=== PATIENT | female | born 1935 | race African-American/Black ===

== ENCOUNTER 2016-09-23 08:41 | Observation (INO) | payer MEDICARE, MEDICAID ==
[2016-09-23] VITALS (9 sets, daily range): BP systolic 131–190; BP diastolic 61–95; PULSE 76–113; RESP 15–20; TEMP 97–97.9; O2SAT 95–100
[~2016-09-23] VITALS: Ht 154.9 cm; Wt 62.0 kg
[~2016-09-23 08:41] MED LIST: 1-ME1LIQ PO; LEVEMIR SQ; LISI-586 PO; METO50TA PO; NITR.3 SL; NOVOLOGP2 SQ; PROT40TA PO
[2016-09-23] MEDS ORDERED: SODIUM CHLORIDE 0.9% FLUSH 5 ML FLUSH IVF PRN (09:15)
--- NOTE | 2016-09-23 09:44 | RADRPT ---
EXAM DATE/TIME: 09/23/2016 09:20 [facility] COMPARISON: CHEST SINGLE AP, February 10, 2016, 8:21. INDICATIONS : Pain middle of chest and short of breath today MEDICAL HISTORY : Hypertension. Gastroesophageal reflux disease. Diabetes mellitus type II. cardiovascular disease SURGICAL HISTORY : Coronary artery stent. ENCOUNTER: Initial ACUITY: 1 day PAIN SCORE: Non-responsive. LOCATION: Bilateral chest FINDINGS: A single view of the chest demonstrates the lungs to be symmetrically aerated without evidence of mas s, infiltrate or effusion. The cardiomediastinal contours are unremarkable. OLD Right rib fractures are noted.. CONCLUSION: No acute disease. Phill Broussard MD FACR on September 23, 2016 at 9:42 Board Certified Radiologist. This report was verified electronically.
--- NOTE | 2016-09-23 09:55 | PD ---
HPI Chief Complaint: Abdominal Pain Time Seen by Provider: 09:04 Travel History International Travel<30 days: No Contact w/Intl Traveler<30days: No Traveled to known affect area: No History of Present Illness HPI 80-year-old female with history of diabetes, hypertension, here for evaluation of chest and abdominal discomfort. The patient reports that the symptoms of been going on for the last 3-4 days, worse today. She complains of feeling bloated and full of gas. No dyspnea. No fevers or chills. She denies history of abdominal surgeries. PFSH Past Medical History Hx Anticoagulant Therapy: Yes (ASA) Arthritis: Yes Heart Rhythm Problems: Yes Cardiac Catheterization: Yes (STENTS X3) Cardiovascular Problems: Yes (HTN) High Cholesterol: Yes Congestive Heart Failure: No Diabetes: Yes (INSULIN DEPENDENT) Patient Takes Glucophage: No Diminished Hearing: No Gastrointestinal Disorders: Yes Heparin Induced Thrombocytopen: No Hypertension: Yes Myocardial Infarction: Yes ?: Not Menopausal: Yes : 7 Para: 7 Miscarriage: 0 : 0 Past Surgical History Coronary Artery Bypass Graft: No Gynecologic Surgery: Yes (HYSTERECTOMY) Hysterectomy: Yes Other Surgery: Yes Family History Family Myocardial Infarction: Yes (MOTHER) Social History Alcohol Use: No Tobacco Use: No Substance Use: No Allergies-Medications (Allergen,Severity, Reaction): Coded Allergies: No Known Allergies (Verified , 09/23/16) Reported Meds & Prescriptions Reported Meds & Active Scripts Active Review of Systems Except as stated in HPI: all other systems reviewed are Neg Physical Exam Narrative GENERAL: Well-developed, well-nourished, elderly-appearing female, awake, alert , pleasant, no acute distress. SKIN: Warm and dry. HEAD: Atraumatic. Normocephalic. EYES: Pupils equal and round. No scleral icterus. No injection or drainage. ENT: No nasal bleeding or discharge. Mucous membranes pink and moist. NECK: Trachea midline. No JVD. CARDIOVASCULAR: Regular rate and rhythm. No murmur appreciated. RESPIRATORY: No accessory muscle use. Clear to auscultation. Breath sounds equal bilaterally. GASTROINTESTINAL: Abdomen soft, non-tender, nondistended. Normal bowel sounds. MUSCULOSKELETAL: No obvious deformities. No clubbing. No cyanosis. No edema. NEUROLOGICAL: Awake and alert. No obvious cranial nerve deficits. Motor grossly within normal limits. Normal speech. PSYCHIATRIC: Appropriate mood and affect; insight and judgment normal. Data Data Last Documented VS Vital Signs Date Time Temp Pulse Resp B/P Pulse Ox O2 Delivery O2 Flow Rate FiO2 09/23/16 09:54 102 171/94 96 Room Air 09/23/16 08:59 20 09/23/16 08:43 97.9 Orders Electrocardiogram (09/23/16 ) Ckmb (Isoenzyme) Profile (09/23/16 09:09) Complete Blood Count With Diff (09/23/16 09:09) Comprehensive Metabolic Panel (09/23/16 09:09) Prothrombin Time / Inr (Pt) (09/23/16 09:09) Act Partial Throm Time (Ptt) (09/23/16 09:09) Troponin I (09/23/16 09:09) Chest, Single Ap (09/23/16 09:09) Ecg Monitoring (09/23/16 09:09) Iv Access Insert/Monitor (09/23/16 09:09) Oximetry (09/23/16 09:09) Sodium Chloride 0.9% Flush (Ns Flush) (09/23/16 09:15) Ct Abd/Pel W Iv Contrast(Rout) (09/23/16 09:09) Urinalysis - C+S If Indicated (09/23/16 09:55) Lipase (09/23/16 09:55) Cath For Specimen (09/23/16 10:03) CKMB (09/23/16 09:45) CKMB% (09/23/16 09:45) Iohexol 350 Inj (Omnipaque 350 Inj) (09/23/16 11:04) Urine Culture (09/23/16 10:49) Morphine Inj (Morphine Inj) (09/23/16 11:45) Labs Laboratory Tests Test 09/23/16 09/23/16 09:45 10:49 White Blood Count 4.0 TH/MM3 Red Blood Count 4.61 MIL/MM3 Hemoglobin 13.3 GM/DL Hematocrit 39.1 % Mean Corpuscular Volume 84.7 FL Mean Corpuscular Hemoglobin 28.8 PG Mean Corpuscular Hemoglobin 34.0 % Concent Red Cell Distribution Width 13.9 % Platelet Count 167 TH/MM3 Mean Platelet Volume 8.5 FL Neutrophils (%) (Auto) 56.2 % Lymphocytes (%) (Auto) 34.2 % Monocytes (%) (Auto) 7.5 % Eosinophils (%) (Auto) 1.1 % Basophils (%) (Auto) 1.0 % Neutrophils # (Auto) 2.3 TH/MM3 Lymphocytes # (Auto) 1.4 TH/MM3 Monocytes # (Auto) 0.3 TH/MM3 Eosinophils # (Auto) 0.0 TH/MM3 Basophils # (Auto) 0.0 TH/MM3 CBC Comment DIFF FINAL Differential Comment Prothrombin Time 10.7 SEC Prothromb Time International 1.0 RATIO Ratio Activated Partial 20.3 SEC Thromboplast Time Sodium Level 136 MEQ/L Potassium Level 4.5 MEQ/L Chloride Level 103 MEQ/L Carbon Dioxide Level 23.9 MEQ/L Anion Gap 9 MEQ/L Blood Urea Nitrogen 17 MG/DL Creatinine 1.08 MG/DL Estimat Glomerular Filtration 59 ML/MIN Rate Random Glucose 155 MG/DL Calcium Level 9.5 MG/DL Total Bilirubin 0.4 MG/DL Aspartate Amino Transf 18 U/L (AST/SGOT) Alanine Aminotransferase 18 U/L (ALT/SGPT) Alkaline Phosphatase 137 U/L Total Creatine Kinase 116 U/L Creatine Kinase MB 2.3 NG/ML Troponin I LESS THAN 0.02 NG/ML Total Protein 8.6 GM/DL Albumin 3.7 GM/DL Urine Color COLORLESS Urine Turbidity CLEAR Urine pH 6.5 Urine Specific [place] 1.002 Urine Protein NEG mg/dL Urine Glucose (UA) TRACE mg/dL Urine Ketones NEG mg/dL Urine Occult Blood NEG Urine Nitrite NEG Urine Bilirubin NEG Urine Urobilinogen LESS THAN 2.0 MG/DL Urine Leukocyte Esterase NEG Urine WBC 1 /hpf Urine Bacteria RARE /hpf Microscopic Urinalysis Comment CATH-CULTURE IND MDM Medical Decision Making Medical Screen Exam Complete: Yes Emergency Medical Condition: Yes Medical Record Reviewed: Yes Interpretation(s) EKG: Sinus, rate 92, first-degree AV block, nonspecific T-wave abnormality with T-wave inversions in lateral leads. No ST segment abnormality. Differential Diagnosis ACS, gastritis, peptic ulcer disease, pancreatitis, UTI, cystitis, mesenteric ischemia, colitis, diverticulitis, pancreatitis, cholecystitis Narrative Course Initial vital signs show heart rate 113, blood pressure 169/80, pulse ox 100% on room air, oral temp of 97.9F. Heart rate improved to 102. CBC is unremarkable. CMP is remarkable for creatinine 1.08, GFR 59, random glucose 155, otherwise unremarkable. Cardiac enzymes are negative. UA shows rare bacteria, negative nitrites, negative leukocyte esterase, not suggestive of UTI. CT abdomen pelvis: CONCLUSION: Stable CT scan of the abdomen and pelvis with no acute intra- abdominal abnormality or change. Cholelithiasis. Right renal cyst. Otherwise negative. The patient and the patient's family were made aware of all findings. She is still complaining of abdominal discomfort that is diffuse/epigastric. Her abdominal exam shows no peritoneal signs. Patient be admitted for further treatment and evaluation of chest pain, intractable abdominal pain. Case discussed with medical residents. The patient will be admitted to their service under Dr. Kelley. Diagnosis Primary Impression: Chest pain Qualified Code: R07.9 - Chest pain, unspecified type Additional Impression: Intractable abdominal pain Admitting Information Admitting Physician Requests: Leobardo Spann MD Sep 23, 2016 09:55
[2016-09-23 10:15] LABS: AUTOMATED NEUTROPHIL # 2.3 TH/MM3 (1.8-7.7); EOSINOPHIL % 1.1 % (0.0-4.0); HEMATOCRIT 39.1 % (35.0-46.0); HEMO FLAGS DIFF FINAL; LYMPH % 34.2 % (9.0-44.0); LYMPHOCYTE # 1.4 TH/MM3 (1.0-4.8); MEAN CELL VOLUME 84.7 FL (80.0-100.0); MEAN CORPUSCULAR HEMOGLOBIN 28.8 PG (27.0-34.0); MONO % 7.5 % (0.0-8.0); NEUT % 56.2 % (16.0-70.0); PLATELET COUNT 167 TH/MM3 (150-450); RED BLOOD COUNT 4.61 MIL/MM3 (4.00-5.30); RED CELL DISTRIBUTION WIDTH 13.9 % (11.6-17.2)
[2016-09-23 10:34] LABS: ALKALINE PHOSPHATASE 137 U/L (45-117); ALT (GPT) 18 U/L (10-53); ANION GAP 9 MEQ/L (5-15); AST (GOT) 18 U/L (15-37); BICARBONATE 23.9 MEQ/L (21.0-32.0); BLOOD UREA NITROGEN 17 MG/DL (7-18); CHLORIDE 103 MEQ/L (98-107); CREATINE KINASE 116 U/L (26-192); GLOMERULAR FILTRATION RATE 59 ML/MIN (>89); PROTHROMBIN TIME - PATIENT 10.7 SEC (9.8-11.6); SODIUM (NA) 136 MEQ/L (136-145); TOTAL BILIRUBIN ADULT 0.4 MG/DL (0.2-1.0)
[2016-09-23 10:37] LABS: APTT (PATIENT) 20.3 SEC (24.3-30.1); POTASSIUM 4.5 MEQ/L (3.5-5.1)
[2016-09-23 10:49] LABS: CKMB 2.3 NG/ML (0.5-3.6)
[2016-09-23] MEDS ORDERED: IOHEXOL 350 MG/ML 10 ML VIAL (for RAD DIAG) IV ONE (11:04)
[2016-09-23 11:12] LABS: BACTERIA, URINE RARE /hpf; BLOOD, URINE NEG (NEG); GLUCOSE,URINE TRACE mg/dL (NEG); KETONE, URINE NEG (NEG); NITRITE,URINE NEG (NEG); PH, URINE 6.5 (5.0-8.5); URINE COLOR COLORLESS (YELLW/STRAW)
[2016-09-23 11:18] LABS: COMMENT (UR) CATH-CULTURE IND; CULTURE IF INDICATED CATH CULTURE IND
--- NOTE | 2016-09-23 11:30 | RADRPT ---
EXAM DATE/TIME: 09/23/2016 11:05 [facility] COMPARISON: CT ABDOMEN & PELVIS W CONTRAST, October 18, 2015, 23:40. INDICATIONS : Abdominal pain and distention. IV CONTRAST: 70 cc Omnipaque 350 (iohexol) IV ORAL CONTRAST: No oral contrast ingested. RADIATION DOSE: 6.50 CTDIvol (mGy) MEDICAL HISTORY : Diabetes mellitus type 2. Cardiovascular disease Hypertension. SURGICAL HISTORY : Hysterectomy. ENCOUNTER: Initial ACUITY: 3 days PAIN SCALE: 5/10 LOCATION: Abdomen. TECHNIQUE: Volumetric scanning of the abdomen and pelvis was performed. Using automated exposure control and adjustment of the mA and/or kV according to patient size, radiation dose was kept as low as reasonably achievable to obtain optimal diagnostic quality images. FINDINGS: LOWER LUNGS: The visualized lower lungs are clear. LIVER: Homogeneous density without lesion. There is no dilation of the biliary tree. Gallbladder seen is a luminal structure with again multiple punctate stones within the gallbladder. SPLEEN: Normal size without lesion. PANCREAS: Within normal limits. KIDNEYS: Normal in size and shape. There is no stone or hydronephrosis. 2.8 cm right kidney lowe r pole cyst unchanged ADRENAL GLANDS: Within normal limits. VASCULAR: There is no aortic aneurysm. BOWEL/MESENTERY: The stomach, small bowel, and colon demonstrate no acute abnormality. There is no free intraperitoneal air or fluid. ABDOMINAL WALL: Within normal limits. RETROPERITONEUM: There is no lymphadenopathy. BLADDER: No wall thickening or mass. REPRODUCTIVE: Within normal limits. INGUINAL: There is no lymphadenopathy or hernia. MUSCULOSKELETAL: Within normal limits for patient age. CONCLUSION: Stable CT scan of the abdomen and pelvis with no acute intra-abdominal abnormality or change. Cholelithiasis. Right renal cyst. Otherwise negative. Pio Villareal MD on September 23, 2016 at 11:24 Board Certified Radiologist. This report was verified electronically.
[2016-09-23] MEDS ORDERED: MORPHINE SULFATE 4 MG/ML INJ IV PUSH ONE (11:45)
[2016-09-23] MEDS ORDERED: ACETAMINOPHEN 325 MG TAB PO PRN (12:00)
[2016-09-23] MEDS ORDERED: NALOXONE HCL 0.4 MG/ML AMP IV PRN (12:00)
[2016-09-23] MEDS ORDERED: SODIUM CHLORIDE 0.9% FLUSH 5 ML FLUSH FLUSH PRN (12:00)
[2016-09-23] MEDS ORDERED: ONDANSETRON HCL 4 MG/2 ML VIAL IVP PRN (12:00)
--- NOTE | 2016-09-23 12:14 | HHI.HP ---
HPI Service Family Medicine Primary Care Physician Unknown Admission Diagnosis chest pain, intractable abdominal pain Diagnoses: International Travel<30 Days: No Contact w/Intl Traveler<30days: No Known Affected Area: No History of Present Illness Patient and caregiver are poor historians This a 80-year-old -[place] female with a past medical history significant for type 2 diabetes on insulin, hyperlipidemia, hypertension, coronary artery disease status post stents, and VT. She is coming in complaining of worsening abdominal discomfort in the epigastric region as well as spreading to the left and right upper quadrants. She reports that this been going on for the last 3-4 days, but this morning was at its worst. She feels that she is bloated and gassy, though she reports having some bowel movements. She denies any nausea or vomiting with this abdominal pain. She denies any black or bloody stool. She does report that her blood sugars have been poorly controlled for the last few weeks, saying that they've been ranging between 200- 400. She states that she's been taking her insulin as prescribed. (Frandy Gallegos MD R2) Review of Systems ROS Limitations: Uncooperative, Poor Historian Other Endorses: Abdominal pain, bowel movement Denies: Fever, chills, nausea, vomiting, shortness of breath, chest pain, headache, calf pain, constipation (Frandy Gallegos MD R2) Past Family Social History Past Medical History Hypertension Diabetes mellitus Coronary artery disease Hyperlipidemia VT Past Surgical History Cardiac stents Hysterectomy Reported Medications Reported Meds & Active Scripts Active (Frandy Gallegos MD R2) Allergies: Coded Allergies: No Known Allergies (Verified , 09/23/16) Family History Noncontributory Social History Patient was alone care helped by her adult son She denies smoking She denies drinking Denies illicit drugs (Frandy Gallegos MD R2) Physical Exam Vital Signs Vital Signs Date Time Temp Pulse Resp B/P Pulse Ox O2 Delivery O2 Flow Rate FiO2 09/23/16 12:08 94 20 164/84 95 Room Air 09/23/16 12:08 96 18 190/95 98 Room Air 09/23/16 09:54 102 171/94 96 Room Air 09/23/16 08:59 20 09/23/16 08:57 108 20 165/77 98 09/23/16 08:43 97.9 113 15 169/80 100 Physical Exam GENERAL: Well-developed, well-nourished, elderly-appearing female, awake, alert , no acute distress. SKIN: Warm and dry. HEAD: Atraumatic. Normocephalic. EYES: Pupils equal and round. No scleral icterus. No injection or drainage. ENT: No nasal bleeding or discharge. Mucous membranes pink and moist. NECK: Trachea midline. No JVD. CARDIOVASCULAR: Regular rate and rhythm. No murmur appreciated. RESPIRATORY: No accessory muscle use. Clear to auscultation. Breath sounds equal bilaterally. GASTROINTESTINAL: Abdomen soft, no hepatosplenomegaly, tenderness or palpation in the epigastric and back across the right and left upper quadrants, nondistended. Normal bowel sounds. MUSCULOSKELETAL: No obvious deformities. No clubbing. No cyanosis. No edema. NEUROLOGICAL: Awake and alert. No obvious cranial nerve deficits. Motor grossly within normal limits. Normal speech. PSYCHIATRIC: Appropriate mood and affect; insight and judgment normal. Laboratory Laboratory Tests Test 09/23/16 09/23/16 09:45 10:49 White Blood Count 4.0 Red Blood Count 4.61 Hemoglobin 13.3 Hematocrit 39.1 Mean Corpuscular Volume 84.7 Mean Corpuscular Hemoglobin 28.8 Mean Corpuscular Hemoglobin 34.0 Concent Red Cell Distribution Width 13.9 Platelet Count 167 Mean Platelet Volume 8.5 Neutrophils (%) (Auto) 56.2 Lymphocytes (%) (Auto) 34.2 Monocytes (%) (Auto) 7.5 Eosinophils (%) (Auto) 1.1 Basophils (%) (Auto) 1.0 Neutrophils # (Auto) 2.3 Lymphocytes # (Auto) 1.4 Monocytes # (Auto) 0.3 Eosinophils # (Auto) 0.0 Basophils # (Auto) 0.0 CBC Comment DIFF FINAL Differential Comment Prothrombin Time 10.7 Prothromb Time International 1.0 Ratio Activated Partial 20.3 Thromboplast Time Sodium Level 136 Potassium Level 4.5 Chloride Level 103 Carbon Dioxide Level 23.9 Anion Gap 9 Blood Urea Nitrogen 17 Creatinine 1.08 Estimat Glomerular Filtration 59 Rate Random Glucose 155 Calcium Level 9.5 Total Bilirubin 0.4 Aspartate Amino Transf 18 (AST/SGOT) Alanine Aminotransferase 18 (ALT/SGPT) Alkaline Phosphatase 137 Total Creatine Kinase 116 Creatine Kinase MB 2.3 Troponin I LESS THAN 0.02 Total Protein 8.6 Albumin 3.7 Urine Color COLORLESS Urine Turbidity CLEAR Urine pH 6.5 Urine Specific [place] 1.002 Urine Protein NEG Urine Glucose (UA) TRACE Urine Ketones NEG Urine Occult Blood NEG Urine Nitrite NEG Urine Bilirubin NEG Urine Urobilinogen LESS THAN 2.0 Urine Leukocyte Esterase NEG Urine WBC 1 Urine Bacteria RARE Microscopic Urinalysis Comment CATH-CULTURE IND Date/Time Procedure Status Source Growth 09/23/16 10:49 Urine Culture Received Urine Catheterized Urine Pending (Farndy Gallegos MD R2) Result Diagram: 09/23/1645 09/23/16944 Imaging Last Impressions Chest X-Ray 09/23/16908 Signed Impressions: Service Date/Time: Friday, September 23, 2016 09:20 - CONCLUSION: No acute disease. Phill Broussard MD FACR Abdomen/Pelvis CT 09/23/16908 Signed Impressions: Service Date/Time: Friday, September 23, 2016 11:05 - CONCLUSION: Stable CT scan of the abdomen and pelvis with no acute intra-abdominal abnormality or change. Cholelithiasis. Right renal cyst. Otherwise negative. Pio Villareal MD (Frandy Gallegos MD R2) Assessment and Plan Assessment and Plan This a 80-year-old -[place] female with a past medical history significant for type 2 diabetes on insulin, hyperlipidemia, hypertension, coronary artery disease status post stents, and VT. She is being admitted observation for epigastric abdominal pain unknown cause. Code Status Full code Discussed Condition With [facility]: Dr. Kelley (Frandy Gallegos MD R2) Attending Attestation THIS CASE WAS DISCUSSED WITH THE RESIDENT PHYSICIAN. I HAVE REVIEWED THE RECORD AND AGREE WITH THE ABOVE NOTE AND PLAN OF CARE WAS DISCUSSED. I HAVE AUTHORIZED THE ORDER FOR PLACEMENT IN OUT-PATIENT OBSERVATION STATUS. (Gage Kelley MD) Problem List: (1) Intractable abdominal pain Status: Acute Plan: Patient being admitted for intractable abdominal pain. History of coronary disease and VT was a concern for possible cardiac cause. History of diabetes that has been reportedly poorly controlled with blood sugars ranging from 200-400. Differential consist of gastroparesis versus gastritis versus stomach ulcer versus VT versus constipation * Admit to observation * Trending troponins/CKMB * Protonix 20 mg by mouth daily * Tylenol 650 mg by mouth every 4 hours when necessary temperature and pain 16 * [place] 5/325 mg by mouth every 4 hours when necessary pain 6-10 * Zofran 4 mg IV to 6 hours when necessary nausea or vomiting * Mechelle-Colace * Milk of magnesia * Hemoccult ordered: Results pending * UA ordered: Negative nitrites, rare bacteria, urine cultures pending (2) Hypertension Status: Acute Plan: Reported history of hypertension, currently not on medications. Chart review showed past medical regimen * Clonidine 0.1 mg by mouth every 6 hours * Holding lisinopril due to elevated creatinine * Continue home med of metoprolol tartrate 50 mg by mouth twice a day * Continue home med of HCTZ 12.5 mg by mouth daily (3) Hyperlipidemia Status: Acute Plan: Reported history of hyperlipidemia. Currently not on medication will hold medications at this time (4) Diabetes mellitus Status: Acute Plan: Reports using 10-12 units NovoLog in the morning, and 25 units of Levemir at night. Says of late her blood sugar has been poorly controlled ranging between 200-400. At time admission blood sugar was 155. * Place on insulin NovoLog sliding scale (5) Coronary artery disease Status: Acute Plan: History of coronary artery disease with stent placement. Performing ACS rule out at this time. Trending troponins and EKGs. * Nitrostat when necessary chest pain per protocol (6) Nutrition, metabolism, and development symptoms Status: Acute Plan: Diabetic diet Out of bed ad moise. Monitor electrolytes and replace accordingly Vitals every 4 SCDs for DVT prophylaxis CODE STATUS: Full code Disposition: To be determined upon improvement of abdominal pain (Frandy Gallegos MD R2) Problem Qualifiers (1) Hypertension: Qualified Code: I10 - Essential hypertension (2) Diabetes mellitus: Qualified Code: E11.8 - Type 2 diabetes mellitus with complication, with long- term current use of insulin (3) Coronary artery disease: Qualified Code: I25.10 - Coronary artery disease involving [place] heart, angina presence unspecified, unspecified vessel or lesion type Frandy Gallegos MD R2 Sep 23, 2016 12:14 Gage Kelley MD Sep 23, 2016 19:42
[2016-09-23] MEDS ORDERED: cloNIDine HCL 0.1 MG TAB PO PRN (12:15)
--- NOTE | 2016-09-23 13:51 | EKG ---
Date Performed: 09/23/2016 Time Performed: 09:09:24 PTAGE: 80 years EKG: Sinus rhythm WITH FIRST DEGREE AV BLOCK NONSPECIFIC T-WAVE ABNORMALITY ABNORMAL ECG PREVIOUS TRACING : 02/10/2016 08.05 No significant change from previous tracing noted. DOCTOR: Shawn Damon Interpretating Date/Time 09/23/2016 13:49:34
[2016-09-23] MEDS ORDERED: DEXTROSE 50% IN WATER 50 ML VIAL(D50) IV PUSH PRN (14:15)
[2016-09-23] MEDS ORDERED: GLUCAGON 1 MG/ML VIAL OTHER PRN (14:15)
[2016-09-23] MEDS ORDERED: PANTOPRAZOLE SOD 20 MG DELAYED RELEASE TAB PO SCH (16:15)
[2016-09-23] MEDS ORDERED: ONDANSETRON HCL 4 MG/2 ML VIAL IV PUSH PRN (17:15)
[2016-09-23] MEDS ORDERED: ACETAMINOPHEN/HYDROcodone 325 MG/5 MG TAB PO PRN (17:15)
[2016-09-23] MEDS ORDERED: NITROGLYCERIN 0.4 MG SL 25 TABS/BTL SL PRN (17:15)
[2016-09-23] MEDS: INSULIN ASPART SUPPLEMENTAL SCALE SQ SCH ×2 (17:37→20:31)
[2016-09-23] MEDS ORDERED: METO50TA PO (18:11)
[2016-09-23] MEDS ORDERED: AMLO5TAB2 PO (18:13)
[2016-09-23] MEDS ORDERED: LISI-586 PO (18:13)
[2016-09-23] MEDS ORDERED: MAGNESIUM HYDROXIDE SUSP 30 ML CUP PO ONE (18:15)
[2016-09-23] MEDS ORDERED: NITR.3 SL (18:15)
[2016-09-23] MEDS ORDERED: NOVOLOGP2 SQ (18:17)
[2016-09-23] MEDS ORDERED: LEVEMIR SQ (18:19)
[2016-09-23] MEDS ORDERED: PROT40TA PO (18:19)
[2016-09-23] MEDS: DOCUSATE SODIUM 50 MG/SENNA 8.6 MG TAB PO SCH (20:31)
[2016-09-23] MEDS: METOPROLOL TARTRATE 50 MG TAB PO SCH (20:31)
[2016-09-23] MEDS: SODIUM CHLORIDE 0.9% FLUSH 5 ML FLUSH FLUSH SCH (20:31)
[2016-09-23 23:44] LABS: CREATINE KINASE 69 U/L (26-192)
[2016-09-24] VITALS: BP_SYST 128; BP_SYST 130; BP_SYST 133; BP_DIAS 62; BP_DIAS 68; BP_DIAS 69; PULSE 67; PULSE 68; RESP 18; TEMP 97; TEMP 97.8; O2SAT 97
[2016-09-24 04:00] VITALS: BP 141/75; PULSE 89; RESP 18; TEMP 97.9; O2SAT 98
[2016-09-24] MEDS: INSULIN ASPART SUPPLEMENTAL SCALE SQ SCH (06:19)
[2016-09-24 07:15] LABS: AUTOMATED NEUTROPHIL # 3.2 TH/MM3 (1.8-7.7); BASOPHIL % 0.8 % (0.0-2.0); EOSINOPHIL # 0.1 TH/MM3 (0-0.4); EOSINOPHIL % 1.2 % (0.0-4.0); HEMATOCRIT 37.3 % (35.0-46.0); HEMO FLAGS DIFF FINAL; LYMPH % 31.2 % (9.0-44.0); LYMPHOCYTE # 1.7 TH/MM3 (1.0-4.8); MEAN CELL VOLUME 86.1 FL (80.0-100.0); MEAN CORPUSCULAR HEMOGLOBIN 28.7 PG (27.0-34.0); MEAN CORPUSCULAR HGB CONC 33.3 % (32.0-36.0); MONO % 7.3 % (0.0-8.0); NEUT % 59.5 % (16.0-70.0); PLATELET COUNT 179 TH/MM3 (150-450); RED BLOOD COUNT 4.34 MIL/MM3 (4.00-5.30); RED CELL DISTRIBUTION WIDTH 13.7 % (11.6-17.2); WHITE BLOOD COUNT 5.4 TH/MM3 (4.0-11.0)
[2016-09-24 07:42] LABS: POTASSIUM 4.5 MEQ/L (3.5-5.1)
[2016-09-24 07:46] VITALS: BP 117/59; PULSE 68; RESP 20; TEMP 97.8; O2SAT 92
[2016-09-24] MEDS: DOCUSATE SODIUM 50 MG/SENNA 8.6 MG TAB PO SCH (08:59)
[2016-09-24] MEDS: METOPROLOL TARTRATE 50 MG TAB PO SCH (08:59)
[2016-09-24] MEDS ORDERED: PANTOPRAZOLE SOD 40 MG DELAYED RELEASE TAB PO SCH (09:00)
[2016-09-24] MEDS ORDERED: HYDROCHLOROTHIAZIDE 12.5 MG CAP PO SCH (09:00)
[2016-09-24] MEDS: SODIUM CHLORIDE 0.9% FLUSH 5 ML FLUSH FLUSH SCH (09:00)
--- NOTE | 2016-09-24 10:02 | HHI.FPPN ---
Subjective Remarks FM Attending Note: Patient seen and examined. S: Chart and all resident physician notes reviewed. In summary this is a 80 year old female who was admitted with an admission diagnosis of Chest Pain, Intractable Abdominal Pain. Her evaluation has been unremarkable with no elevation of her white blood cell count and negative imaging studies. She was observed overnight and notes that her pain has resolved. This morning she had a normal breakfast without difficulty. She notes no significant abdominal or chest pain. She denies any indigestion. She has no past history of peptic ulcer disease or GI bleeding. Objective Vitals Vital Signs Date Time Temp Pulse Resp B/P Pulse Ox O2 Delivery O2 Flow Rate FiO2 09/24/16 07:46 97.8 68 20 117/59 92 09/24/16 04:00 97.9 89 18 141/75 98 09/24/16 00:00 97.8 67 18 130/62 97 09/23/16 20:29 97.0 84 18 133/69 97 09/23/16 20:00 98 09/23/16 15:21 97.9 76 18 131/61 95 09/23/16 14:34 76 18 133/73 97 09/23/16 12:45 18 09/23/16 12:20 98 18 164/84 98 Room Air 09/23/16 12:08 94 20 164/84 95 Room Air 09/23/16 12:08 96 18 190/95 98 Room Air I/O 09/23/16 09/23/16 09/23/16 09/24/16 09/24/16 09/24/16 07:00 15:00 23:00 07:00 15:00 23:00 Intake Total 200 ml Balance 200 ml Intake Oral 200 ml Result Diagram: 09/24/16 0605 09/24/16 0605 Other Results Item Value Date Time Troponin I LESS THAN 0.02 NG/ML L 09/23/16 0945 Troponin I 0.03 NG/ML 09/23/16 1545 Troponin I 0.02 NG/ML 09/23/16 2251 Total Creatine Kinase 116 U/L 09/23/16 0945 Creatine Kinase MB 2.3 NG/ML 09/23/16 0945 Lipase 149 U/L 09/23/16 0945 Aspartate Amino Transf (AST/SGOT) 18 U/L 09/23/16 0945 Alanine Aminotransferase (ALT/SGPT) 18 U/L 09/23/16 0945 Alkaline Phosphatase 137 U/L H 09/23/16 0945 Urine Specific [place] 1.002 09/23/16 1049 Urine Glucose (UA) TRACE mg/dL 09/23/16 1049 Urine Nitrite NEG 09/23/16 1049 Urine Leukocyte Esterase NEG 09/23/16 1049 Urine WBC 1 /hpf 09/23/16 1049 Imaging Last 48 hours Impressions Chest X-Ray 09/23/16 0909 Signed Impressions: Service Date/Time: Friday, September 23, 2016 09:20 - CONCLUSION: No acute disease. Phill Broussard MD FACR Abdomen/Pelvis CT 09/23/16 09 Signed Impressions: Service Date/Time: Friday, September 23, 2016 11:05 - CONCLUSION: Stable CT scan of the abdomen and pelvis with no acute intra-abdominal abnormality or change. Cholelithiasis. Right renal cyst. Otherwise negative. Pio Villareal MD Objective Remarks O. CONSTITUTIONAL/GEN: normally nourished, in NAD. EYES: conjunctiva normal, PERRLA, EOMI. LUNGS: clear A-P, respiratory effort is normal. CARDIOVASCULAR: RR without murmur or gallop. No significant edema. GI/ABD: soft without masses, without organomegaly. : no CVA tenderness NEURO: No focal deficits. MUSC: back is normal in appearance. Extremities are normal in appearance. PSYCH/MENTAL STATUS: Alert and oriented x 3. A/P Assessment and Plan This a 80-year-old -[place] female with a past medical history significant for type 2 diabetes on insulin, hyperlipidemia, hypertension, coronary artery disease status post stents, and TN. She is being admitted observation for epigastric abdominal pain unknown cause. Problem List: (1) Intractable abdominal pain Status: Acute Plan: Patient being admitted for intractable abdominal pain. History of coronary disease and TN was a concern for possible cardiac cause. History of diabetes that has been reportedly poorly controlled with blood sugars ranging from 200-400. Differential consist of gastroparesis versus gastritis versus stomach ulcer versus TN versus constipation * Admit to observation * Trending troponins/CKMB * Protonix 20 mg by mouth daily * Tylenol 650 mg by mouth every 4 hours when necessary temperature and pain 16 * [place] 5/325 mg by mouth every 4 hours when necessary pain 6-10 * Zofran 4 mg IV to 6 hours when necessary nausea or vomiting * Mechelle-Colace * Milk of magnesia * Hemoccult ordered: Results pending * UA ordered: Negative nitrites, rare bacteria, urine cultures pending 09/24/16 This morning the patient's abdominal pain has totally resolved. She has noted some recent constipation. Would speculate that her abdominal pain was secondary to gastroenteritis and possible constipation. She has no history of peptic ulcer disease and long-term treatment with a PPI is probably not indicated but will have her continue Protonix daily for 1 week. We discussed using a stool softer with mild laxative to ensure a relatively normal bowel movement with ideal chronic management being increased fiber and fluids with normal activity. She is to follow-up with her primary care physician in the next 1-2 weeks. (2) Hypertension Status: Acute Plan: Reported history of hypertension, currently not on medications. Chart review showed past medical regimen * Clonidine 0.1 mg by mouth every 6 hours * Holding lisinopril due to elevated creatinine * Continue home med of metoprolol tartrate 50 mg by mouth twice a day * Continue home med of HCTZ 12.5 mg by mouth daily (3) Hyperlipidemia Status: Acute Plan: Reported history of hyperlipidemia. Currently not on medication will hold medications at this time (4) Diabetes mellitus Status: Acute Plan: Reports using 10-12 units NovoLog in the morning, and 25 units of Levemir at night. Says of late her blood sugar has been poorly controlled ranging between 200-400. At time admission blood sugar was 155. * Place on insulin NovoLog sliding scale (5) Coronary artery disease Status: Acute Plan: History of coronary artery disease with stent placement. Performing ACS rule out at this time. Trending troponins and EKGs. * Nitrostat when necessary chest pain per protocol * 09/24/16 * No chest pain overnight. Cardiac workup was negative for significant cardiac abnormality. (6) Nutrition, metabolism, and development symptoms Status: Acute Plan: Diabetic diet Out of bed ad moise. Monitor electrolytes and replace accordingly Vitals every 4 SCDs for DVT prophylaxis CODE STATUS: Full code Disposition: To be determined upon improvement of abdominal pain Problem Qualifiers (1) Hypertension: Qualified Code: I10 - Essential hypertension (2) Diabetes mellitus: Qualified Code: E11.8 - Type 2 diabetes mellitus with complication, with long- term current use of insulin (3) Coronary artery disease: Qualified Code: I25.10 - Coronary artery disease involving [place] heart, angina presence unspecified, unspecified vessel or lesion type Gage Kelley MD Sep 24, 2016 10:02
--- NOTE | 2016-09-24 10:03 | HHI.DCPOC ---
Discharge Care Plan Diagnosis: (1) Diabetes mellitus (2) Intractable abdominal pain Goals to Promote Your Health * To prevent worsening of your condition and complications * To maintain your health at the optimal level Directions to Meet Your Goals Take your medications as prescribed Follow your dietary instruction Follow activity as directed Keep your appointments as scheduled Take your immunizations and boosters as scheduled If your symptoms worsen call your PCP, if no PCP go to Urgent Care Center or Emergency Room Smoking is Dangerous to Your Health. Avoid second hand smoke Call the 24-hour hour crisis hotline for domestic abuse at Lazaro Marsh MD R3 Sep 24, 2016 10:03
[2016-09-24] MEDS ORDERED: SENN1TAB PO (10:10)
[2016-09-24 12:31] LABS: HEMOGLOBIN A1a 0.9 %; HEMOGLOBIN A1b 2.7 %; HEMOGLOBIN LA1C 2.5 %; HEMOGLOBIN P3 4.7 %
--- NOTE | 2016-09-24 13:46 | EKG ---
Date Performed: 09/23/2016 Time Performed: 22:32:21 PTAGE: 80 years EKG: SINUS BRADYCARDIA WITH FIRST DEGREE AV BLOCK MODERATE T-WAVE ABNORMALITY, CONSIDER LATERAL ISCHEMIA ABNORMAL ECG Compared to prior tracing no significant change PREVIOUS TRACING : 09/23/2016 16.20 DOCTOR: Yessica Aguilar Interpretating Date/Time 09/24/2016 13:44:37
--- NOTE | 2016-09-24 13:46 | EKG ---
Date Performed: 09/23/2016 Time Performed: 16:20:45 PTAGE: 80 years EKG: Sinus rhythm WITH FIRST DEGREE AV BLOCK NONSPECIFIC ST & T-WAVE ABNORMALITY ABNORMAL ECG Since PREVIOUS TRACING , no significant change noted PREVIOUS TRACING 09/23/201624 DOCTOR: Yessica Aguilar Interpretating Date/Time 09/24/2016 13:44:26
== END 2016-09-24 12:40 | disposition home or self-care (01) ==
LOC: NEPC 08:41 → NEDA 11:49 → NEPGCP 15:06
PROVIDERS: ADMIT Family Medicine; ATTEND Family Medicine
DX: R07.9 Chest pain, unspecified (principal); I25.10 Atherosclerotic heart disease of native coronary artery without angina pectoris; I10 Essential (primary) hypertension; E78.5 Hyperlipidemia, unspecified; I25.2 Old myocardial infarction; R79.89 Other specified abnormal findings of blood chemistry; E11.8 Type 2 diabetes mellitus with unspecified complications; E78.00 Pure hypercholesterolemia, unspecified; K52.9 Noninfective gastroenteritis and colitis, unspecified; N28.1 Cyst of kidney, acquired; K80.20 Calculus of gallbladder without cholecystitis without obstruction; Z95.5 Presence of coronary angioplasty implant and graft; Z79.4 Long term (current) use of insulin
CPT/HCPCS: 71010; 74177; 80048; 80053; 81001; 82550; 82552; 82948; 83036; 83690; 84484; 85025; 85610; 85730; 86403; 87086; 93005; 99285; G0378; J1815; J2270; Q9967

== ENCOUNTER 2016-10-29 21:14 | Emergency (ER) | payer MEDICARE, MEDICAID ==
[~2016-10-29] VITALS: Ht 154.9 cm; Wt 63.0 kg
[~2016-10-29 21:14] MED LIST changes: -1-ME1LIQ PO; +AMLO5TAB2 PO; +SENN1TAB PO
[2016-10-29 21:15] VITALS: BP 190/81; PULSE 85; RESP 16; TEMP 97.8; O2SAT 96
[2016-10-29 22:26] LABS: BLOOD, URINE NEG (NEG); GLUCOSE,URINE TRACE mg/dL (NEG); KETONE, URINE NEG (NEG); MUCUS URINE FEW /lpf (OCC); NITRITE,URINE NEG (NEG); SQUAMOUS EPITHELIAL CELL URINE <1 /hpf (0-5); URINE COLOR COLORLESS (YELLW/STRAW)
[2016-10-29 22:30] LABS: COMMENT (UR) CULT NOT INDICATED; CULTURE IF INDICATED CULT NOT INDICATED
[2016-10-29 22:53] VITALS: RESP 15; O2SAT 97
[2016-10-29] MEDS ORDERED: NOVOLOGP2 SQ (22:53)
[2016-10-29] MEDS ORDERED: SODIUM CHLORID 0.9% 500 ML INJ 500 ML IV ONE (23:00)
--- NOTE | 2016-10-29 23:13 | RADRPT ---
EXAM DATE/TIME: 10/29/2016 23:02 [facility] COMPARISON: CHEST SINGLE AP, September 23, 2016, 9:20. INDICATIONS : Cough for 5 days. MEDICAL HISTORY : Diabetes mellitus type 2. Cardiovascular disease Hypertension. SURGICAL HISTORY : Hysterectomy. Cardiac stents. ENCOUNTER: Initial ACUITY: 4 - 6 days PAIN SCORE: 2/10 LOCATION: Bilateral chest FINDINGS: A single view of the chest demonstrates some focal eventration of the midportion of the right hemidia phragm. Lungs are otherwise clear with no acute infiltrate or effusion. Old healed fracture deformiti es of the posterolateral right mid ribs. Osseous structures are otherwise intact. CONCLUSION: No acute cardiopulmonary process to explain current clinical symptoms. Paco Rojas MD on October 29, 2016 at 23:10 Board Certified Radiologist. This report was verified electronically.
[2016-10-29 23:18] LABS: AUTOMATED NEUTROPHIL # 1.6 TH/MM3 (1.8-7.7); BASOPHIL % 0.8 % (0.0-2.0); EOSINOPHIL # 0.2 TH/MM3 (0-0.4); EOSINOPHIL % 5.2 % (0.0-4.0); HEMATOCRIT 37.4 % (35.0-46.0); HEMO FLAGS DIFF FINAL; LYMPH % 49.2 % (9.0-44.0); LYMPHOCYTE # 2.2 TH/MM3 (1.0-4.8); MEAN CELL VOLUME 85.4 FL (80.0-100.0); MEAN CORPUSCULAR HEMOGLOBIN 28.9 PG (27.0-34.0); MEAN CORPUSCULAR HGB CONC 33.9 % (32.0-36.0); NEUT % 35.8 % (16.0-70.0); PLATELET COUNT 156 TH/MM3 (150-450); RED BLOOD COUNT 4.38 MIL/MM3 (4.00-5.30); RED CELL DISTRIBUTION WIDTH 13.5 % (11.6-17.2); WHITE BLOOD COUNT 4.5 TH/MM3 (4.0-11.0)
[2016-10-29 23:30] LABS: APTT (PATIENT) 26.6 SEC (24.3-30.1); PROTHROMBIN TIME - PATIENT 10.7 SEC (9.8-11.6)
[2016-10-29 23:41] LABS: ALT (GPT) 18 U/L (10-53); ANION GAP 10 MEQ/L (5-15); AST (GOT) 16 U/L (15-37); BICARBONATE 27.1 MEQ/L (21.0-32.0); BLOOD UREA NITROGEN 18 MG/DL (7-18); CHLORIDE 98 MEQ/L (98-107); GLOMERULAR FILTRATION RATE 73 ML/MIN (>89); MAGNESIUM 1.8 MG/DL (1.5-2.5); POTASSIUM 3.9 MEQ/L (3.5-5.1); SODIUM (NA) 135 MEQ/L (136-145)
[2016-10-29 23:43] LABS: ALKALINE PHOSPHATASE 115 U/L (45-117); TOTAL BILIRUBIN ADULT 0.4 MG/DL (0.2-1.0)
--- NOTE | 2016-10-30 00:09 | PD ---
HPI Chief Complaint: Cold / Flu Symptoms Time Seen by Provider: 22:45 Travel History International Travel<30 days: No Contact w/Intl Traveler<30days: No Traveled to known affect area: No History of Present Illness HPI The patient is a 80 year old female who presents to the [facility] emergency department with a history of cough, congestion that began 5 days ago. The patient reports that her cough is been productive of a thick white sputum. She reports that she's had a subjective fever and diarrhea. She reports the diarrhea has been present 3-4 times per day and is dark brown and loose. She denies having any blood or mucus in her stool. She reports having some nausea and decreased appetite, however no vomiting. The patient reports having associated body aches. She reports having upper abdominal pain related to the coughing. She reports having intermittent urinary incontinence related to her coughing. She denies any dysuria. She denies any urinary frequency or urgency. The patient denies any neck pain, chest pain, shortness of breath, or neurologic symptoms. [facility] Past Medical History Narrative Medical The patient's past medical history is significant for hypertension, diabetes mellitus, coronary artery disease, acid reflux. Hx Anticoagulant Therapy: Yes (ASA) Arthritis: Yes Heart Rhythm Problems: Yes Cardiac Catheterization: Yes (STENTS X3) Cardiovascular Problems: Yes (HTN) High Cholesterol: Yes Congestive Heart Failure: No Diabetes: Yes (INSULIN DEPENDENT) Patient Takes Glucophage: No Diminished Hearing: No Gastrointestinal Disorders: Yes Heparin Induced Thrombocytopen: No Hypertension: Yes Myocardial Infarction: Yes Influenza Vaccination: Yes ?: Not Menopausal: Yes : 7 Para: 7 Miscarriage: 0 : 0 Past Surgical History Narrative Surgical The patient's past surgical history is significant for a hysterectomy. Coronary Artery Bypass Graft: No Gynecologic Surgery: Yes (HYSTERECTOMY) Hysterectomy: Yes Other Surgery: Yes Family History Family Myocardial Infarction: Yes (MOTHER) Social History Alcohol Use: No Tobacco Use: No Substance Use: No Allergies-Medications (Allergen,Severity, Reaction): Coded Allergies: No Known Allergies (Verified , 09/23/16) Reported Meds & Prescriptions Reported Meds & Active Scripts Active Benzonatate 100 Mg Cap 100 Mg PO TID PRN Senna Plus 8.6-50 mg (Sennosides-Docusate Sodium) 1 Tab Tab 2 Tab PO BID PRN Reported Novolog Inj (Insulin Aspart) 1,000 Unit/10 Ml Vial 0 SQ ACHS SLIDING SCALE Sliding Scale as directed. Levemir Inj (Insulin Detemir) 1,000 unit/ 10 ML Vial 25 Units SQ HS Do not mix with any other Insulin. Protonix (Pantoprazole Sodium) 40 Mg Tab 40 Mg PO PRN PRN Amlodipine (Amlodipine Besylate) 5 Mg Tab 5 Mg PO BID Review of Systems General / Constitutional: Positive: Fever Eyes: No: Visual changes HENT: Positive: Rhinorrhea, Congestion, No: Headaches Cardiovascular: No: Chest Pain or Discomfort, Dyspnea on exertion Respiratory: Positive: Cough, No: Shortness of Breath Gastrointestinal: Positive: Nausea, Diarrhea, Abdominal Pain, Changes in Bowel Habits, Loss of Appetite, No: Vomiting, Hematemesis, Hematochezia Genitourinary: Positive: Incontinence, No: Urgency, Frequency, Dysuria, Flank Pain Musculoskeletal: Positive: Myalgias, Pain Skin: No Rash Neurologic: Positive: Weakness (generalized weakness), No: Focal Abnormalities , Change in Mentation, Slurred Speech, Sensory Disturbance Psychiatric: No: Depression Endocrine: No: Polydipsia Hematologic/Lymphatic: No: Easy Bruising Physical Exam Narrative General: The patient is a well-developed well-nourished female in no acute distress Head and Neck exam: Head is normocephalic atraumatic. Eyes: EOMI, pupils are equal round and reactive to light. Nose: Midline septum with erythematous edematous nasal mucosa and a clear nasal discharge. Mouth: Dentition unremarkable. Moist mucus membranes. Posterior oropharynx is not erythematous. No tonsillar hypertrophy. Uvula midline. Airway patent. Neck: No palpable lymphadenopathy. No nuchal rigidity. No thyromegaly. Cardiovascular: Regular rate and rhythm without murmurs, gallops, or rubs. No pulse deficit to the extremities. Lungs: Clear to auscultation bilaterally. No wheezes, rhonchi, or rales. She has a frequent dry sounding cough on examination. Abdomen: Soft, with tenderness on palpation in bilateral upper quadrants of the abdomen. No tenderness on palpation of bilateral lower quadrants or suprapubic area. No guarding, rebound, or rigidity. Negative [place] sign. No tenderness on palpation of McBurney's point. Normal bowel sounds are audible. Extremities: No clubbing, cyanosis, or edema. 2+ pulses in all 4 extremities. No calf tenderness on palpation. Back: No spinous process tenderness to palpation. No costovertebral angle tenderness to palpation. Neurologic Exam: Grossly nonfocal. Skin Exam: No rash noted. Intact skin that is warm and dry. Data Data Last Documented VS Vital Signs Date Time Temp Pulse Resp B/P Pulse Ox O2 Delivery O2 Flow Rate FiO2 10/29/16 23:07 Room Air 10/29/16 22:53 15 97 10/29/16 21:15 97.8 85 190/81 Orders Urinalysis - C+S If Indicated (10/29/16 22:03) Electrocardiogram (10/29/16 22:45) Complete Blood Count With Diff (10/29/16 22:45) Comprehensive Metabolic Panel (10/29/16 22:45) B-Type Natriuretic Peptide (10/29/16 22:45) Prothrombin Time / Inr (Pt) (10/29/16 22:45) Act Partial Throm Time (Ptt) (10/29/16 22:45) C-Reactive Protein (Crp) (10/29/16 22:45) Lipase (10/29/16 22:45) Magnesium (Mg) (10/29/16 22:45) Influenzae A/B Antigen (10/29/16 22:45) Chest, Single Ap (10/29/16 22:45) Iv Access Insert/Monitor (10/29/16 22:45) Ecg Monitoring (10/29/16 22:45) Oximetry (10/29/16 22:45) Stool Wbc (Leukocytes) (10/29/16 22:45) C Diff Toxin Pcr (10/29/16 22:45) Enteric Path (Stool) (10/29/16 22:45) Sodium Chlorid 0.9% 500 Ml Inj (Ns 500 M (10/29/16 23:00) Ct Abd/Pel W Iv Contrast(Rout) (10/30/16 00:09) Iohexol 350 Inj (Omnipaque 350 Inj) (10/30/16 01:17) Benzonatate (Tessalon) (10/30/16 01:45) Labs Laboratory Tests Test 10/29/16 10/29/16 21:55 22:45 Urine Color COLORLESS Urine Turbidity CLEAR Urine pH 6.0 Urine Specific [place] 1.003 Urine Protein NEG mg/dL Urine Glucose (UA) TRACE mg/dL Urine Ketones NEG mg/dL Urine Occult Blood NEG Urine Nitrite NEG Urine Bilirubin NEG Urine Urobilinogen LESS THAN 2.0 MG/DL Urine Leukocyte Esterase MOD Urine RBC LESS THAN 1 /hpf Urine WBC 2 /hpf Urine Squamous Epithelial <1 /hpf Cells Urine Mucus FEW /lpf Microscopic Urinalysis Comment CULT NOT INDICATED White Blood Count 4.5 TH/MM3 Red Blood Count 4.38 MIL/MM3 Hemoglobin 12.7 GM/DL Hematocrit 37.4 % Mean Corpuscular Volume 85.4 FL Mean Corpuscular Hemoglobin 28.9 PG Mean Corpuscular Hemoglobin 33.9 % Concent Red Cell Distribution Width 13.5 % Platelet Count 156 TH/MM3 Mean Platelet Volume 8.4 FL Neutrophils (%) (Auto) 35.8 % Lymphocytes (%) (Auto) 49.2 % Monocytes (%) (Auto) 9.0 % Eosinophils (%) (Auto) 5.2 % Basophils (%) (Auto) 0.8 % Neutrophils # (Auto) 1.6 TH/MM3 Lymphocytes # (Auto) 2.2 TH/MM3 Monocytes # (Auto) 0.4 TH/MM3 Eosinophils # (Auto) 0.2 TH/MM3 Basophils # (Auto) 0.0 TH/MM3 CBC Comment DIFF FINAL Differential Comment Prothrombin Time 10.7 SEC Prothromb Time International 1.0 RATIO Ratio Activated Partial 26.6 SEC Thromboplast Time Sodium Level 135 MEQ/L Potassium Level 3.9 MEQ/L Chloride Level 98 MEQ/L Carbon Dioxide Level 27.1 MEQ/L Anion Gap 10 MEQ/L Blood Urea Nitrogen 18 MG/DL Creatinine 0.90 MG/DL Estimat Glomerular Filtration 73 ML/MIN Rate Random Glucose 238 MG/DL Calcium Level 9.2 MG/DL Magnesium Level 1.8 MG/DL Total Bilirubin 0.4 MG/DL Aspartate Amino Transf 16 U/L (AST/SGOT) Alanine Aminotransferase 18 U/L (ALT/SGPT) Alkaline Phosphatase 115 U/L C-Reactive Protein 2.07 MG/DL B-Type Natriuretic Peptide 33 PG/ML Total Protein 7.8 GM/DL Albumin 3.3 GM/DL Lipase 112 U/L [facility] Medical Decision Making Medical Screen Exam Complete: Yes Emergency Medical Condition: Yes Medical Record Reviewed: Yes Interpretation(s) Last Impressions Abdomen/Pelvis CT 10/30/16 0009 Signed Impressions: Service Date/Time: Sunday, October 30, 2016 01:12 - CONCLUSION: 1. Grossly stable examination with cholelithiasis and a benign 2.8 cm right renal cyst. 2. No acute intraperitoneal or pelvic process to explain current clinical symptoms. Paco Rojas MD Chest X-Ray 10/29/16 2245 Signed Impressions: Service Date/Time: Saturday, October 29, 2016 23:02 - CONCLUSION: No acute cardiopulmonary process to explain current clinical symptoms. Paco Rojas MD Differential Diagnosis Influenza, versus pneumonia, versus urinary tract infection, versus sepsis, versus colitis, versus diverticulitis, versus dehydration, versus electrolyte abnormalities Narrative Course During the course of the patients emergency department visit, the patients history, examination, and differential diagnosis were reviewed with the patient. The patient had IV access obtained and blood work sent for analysis. The patient was placed on a ekg monitor tech with oximetry and blood pressure monitoring. An EKG was done on arrival. The patient's EKG shows a sinus rhythm at 76, no acute ST segment elevation is noted. T waves are inverted in lead 1, aVL. No acute ST segment depression is noted. Chest x-ray, CT scan of the abdomen and pelvis was ordered. The patient was provided normal saline a 500 mL bolus 1. The patients laboratory studies were reviewed and remarkable for a white count of 4.5, hemoglobin 12.7, platelets 156 with 49.2 lymphocytes, monocytes 9.0. CMP is remarkable for sodium of 135, glucose 238, C-reactive protein 2.07, BNP 33, lipase 112, urinalysis shows moderate leukocyte esterase rbc's less than 1 wbc's to culture not indicated. PT PTT are unremarkable. Influenza antigen a and B are negative. Radiology studies were reviewed and remarkable for a chest x-ray shows no acute cardiopulmonary disease. The patient is resting comfortably and feels better, is alert and in no distress. The patients results and examination findings were discussed with the patient. The repeat examination is unremarkable and benign. The history, exam, diagnostic testing, and current condition do not suggest any significant pathology to warrant further testing, continued ED treatment, admission, or surgical evaluation at this point. The vital signs have been stable. The patient does not have uncontrollable pain, intractable vomiting, or other significant symptoms. The patient's condition is stable and appropriate for discharge. The patient will pursue further outpatient evaluation with a primary care physician or other designated or consulting physician as indicated in the discharge instructions. The patient expressed understanding and was agreeable with this plan. Diagnosis Primary Impression: Viral syndrome Additional Impressions: Diarrhea Qualified Code: R19.7 - Diarrhea, unspecified type Cough Referrals: Primary Care Physician Patient Instructions: Acute Cough (ED), Acute Diarrhea (ED), General Instructions, Viral Syndrome (ED) Med/Other Pt SpecificInfo: Prescription(s) given Scripts Benzonatate 100 Mg [id number] Mg PO TID PRN (COUGH) #15 CAP Ref 0 Prov:Carina Shaffer MD 10/30/16 Disposition: 01 DISCHARGE HOME Condition: Stable Carina Shaffer MD Oct 30, 2016 00:09
[2016-10-30] MEDS ORDERED: BENZ1CAP8 PO (00:59)
[2016-10-30] MEDS ORDERED: IOHEXOL 350 MG/ML 10 ML VIAL (for RAD DIAG) IV ONE (01:17)
--- NOTE | 2016-10-30 01:34 | RADRPT ---
EXAM DATE/TIME: 10/30/2016 01:12 [facility] COMPARISON: CT ABDOMEN & PELVIS W CONTRAST, September 23, 2016, 11:05. INDICATIONS : Abdomen pain along with diarrhea. IV CONTRAST: 76 cc Omnipaque 350 (iohexol) IV ORAL CONTRAST: No oral contrast ingested. RADIATION DOSE: 7.25 CTDIvol (mGy) MEDICAL HISTORY : Cardiovascular disease. Hypertension. Diabetes mellitus type 2. SURGICAL HISTORY : Hysterectomy. ENCOUNTER: Initial ACUITY: 2 days PAIN SCALE: 2/10 LOCATION: abdomen TECHNIQUE: Volumetric scanning of the abdomen and pelvis was performed. Using automated exposure control and ad justment of the mA and/or kV according to patient size, radiation dose was kept as low as reasonably achievable to obtain optimal diagnostic quality images. FINDINGS: Study is somewhat limited due to multilevel motion artifact but I believe adequate for diagnosis LOWER LUNGS: The visualized lower lungs are clear. LIVER: Homogeneous density without lesion. There is no dilation of the biliary tree. Multiple calcified gal lstones in the gallbladder lumen. SPLEEN: Normal size without lesion. PANCREAS: Within normal limits. KIDNEYS: Normal in size and shape. There is no mass, stone or hydronephrosis. Benign-appearing 2.8 cm cortica l cyst in the medial lower pole of the right kidney ADRENAL GLANDS: Within normal limits. VASCULAR: There is no aortic aneurysm. BOWEL/MESENTERY: The stomach, small bowel, and colon demonstrate no acute abnormality. There is no free intraperitone al air or fluid. ABDOMINAL WALL: Within normal limits. RETROPERITONEUM: There is no lymphadenopathy. BLADDER: Some distention of the bladder lumen.. REPRODUCTIVE: Patient appears to be status post hysterectomy. INGUINAL: There is no lymphadenopathy or hernia. MUSCULOSKELETAL: Within normal limits for patient age. CONCLUSION: 1. Grossly stable examination with cholelithiasis and a benign 2.8 cm right renal cyst. 2. No acute intraperitoneal or pelvic process to explain current clinical symptoms. Paco Rojas MD on October 30, 2016 at 1:25 Board Certified Radiologist. This report was verified electronically.
[2016-10-30] MEDS ORDERED: BENZONATATE 100 MG CAP PO ONE (01:45)
--- NOTE | 2016-10-30 18:35 | EKG ---
Date Performed: 10/29/2016 Time Performed: 23:28:34 PTAGE: 80 years EKG: Sinus rhythm WITH FIRST DEGREE AV BLOCK MODERATE T-WAVE ABNORMALITY, CONSIDER LATERAL ISCHEMIA ABNORMAL ECG PREVIOUS TRACING : 09/23/2016 22.32 DOCTOR: Brando Pond Interpretating Date/Time 10/30/2016 18:33:12
[2016-10-30] MEDS ORDERED: LISI20TA PO (23:38)
[2016-10-31] MEDS ORDERED: ALBU6.7H INH (02:10)
[2016-10-31] MEDS ORDERED: BREAMIS5 (02:10)
== END 2016-10-30 02:25 | disposition home or self-care (01) ==
LOC: NEPC 21:14
DX: B34.9 Viral infection, unspecified (principal); R19.7 Diarrhea, unspecified; R05 Cough; R94.31 Abnormal electrocardiogram [ECG] [EKG]; R10.10 Upper abdominal pain, unspecified; I10 Essential (primary) hypertension; E11.9 Type 2 diabetes mellitus without complications; E78.00 Pure hypercholesterolemia, unspecified; Z79.01 Long term (current) use of anticoagulants; J40 Bronchitis, not specified as acute or chronic; N95.2 Postmenopausal atrophic vaginitis; R30.0 Dysuria; E78.5 Hyperlipidemia, unspecified; I25.10 Atherosclerotic heart disease of native coronary artery without angina pectoris; Z79.82 Long term (current) use of aspirin; Z79.4 Long term (current) use of insulin; Z86.79 Personal history of other diseases of the circulatory system; Z87.39 Personal history of other diseases of the musculoskeletal system and connective tissue; Z87.19 Personal history of other diseases of the digestive system
CPT/HCPCS: 71010; 74177; 80048; 80053; 81001; 82550; 83605; 83690; 83735; 83880; 84484; 85025; 85610; 85730; 86140; 87040; 87804; 93005; 96360; 99285; J7040; Q9967

== ENCOUNTER 2016-10-30 22:31 | Emergency (ER) | payer MEDICARE, MEDICAID ==
[~2016-10-30] VITALS: Ht 154.9 cm; Wt 59.1 kg
[~2016-10-30 22:31] MED LIST changes: +BENZ1CAP8 PO; -LISI-586 PO; -METO50TA PO; -NITR.3 SL
[2016-10-30 22:47] VITALS: BP 168/78; PULSE 91; RESP 18; TEMP 97.5; O2SAT 98
[2016-10-30 23:31] VITALS: BP 181/80; PULSE 87; RESP 22; O2SAT 97
[2016-10-30] MEDS ORDERED: LISI20TA PO (23:38)
[2016-10-30] MEDS ORDERED: SODIUM CHLORIDE 0.9% FLUSH 5 ML FLUSH IVF PRN (23:45)
--- NOTE | 2016-10-30 23:51 | PD ---
HPI Chief Complaint: Cold / Flu Symptoms Time Seen by Provider: 23:42 Travel History International Travel<30 days: No Contact w/Intl Traveler<30days: No Traveled to known affect area: No History of Present Illness HPI 80-year-old female presents to the emergency department for complaint of cough and feeling like her heart is racing. Patient was diagnosed yesterday with a viral syndrome. Patient denies chest pain but does complain of cough and congestion. No shortness of breath at this time. Patient also complains of abdominal discomfort. Patient is been metered recently for intractable abdominal pain at CT abdomen and pelvis last night that showed stable cholelithiasis without evidence of cholecystitis. Patient states that she also has had intermittent diarrhea. No report of hematemesis coffee-ground emesis melena or hematochezia. Patient has had some dysuria. Patient is diabetic as well as history of hypertension dyslipidemia and CAD. Patient was noted to have a negative flu antigen yesterday. Patient denies any new symptoms states just not improving. PFSH Past Medical History Narrative Medical CAD myocardial infarction arthritis cardiac catheterization with stents 3 dyslipidemia hypertension diabetes hysterectomy no tobacco use nursing notes reviewed Hx Anticoagulant Therapy: Yes (ASA) Arthritis: Yes Heart Rhythm Problems: Yes Cardiac Catheterization: Yes (STENTS X3) Cardiovascular Problems: Yes (HTN) High Cholesterol: Yes Congestive Heart Failure: No Diabetes: Yes Patient Takes Glucophage: No Diminished Hearing: No Gastrointestinal Disorders: Yes Heparin Induced Thrombocytopen: No Hypertension: Yes Immunizations Current: Yes Myocardial Infarction: Yes Influenza Vaccination: Yes Menopausal: Yes : 7 Para: 7 Miscarriage: 0 : 0 Past Surgical History Coronary Artery Bypass Graft: No Gynecologic Surgery: Yes (HYSTERECTOMY) Hysterectomy: Yes Other Surgery: Yes Family History Family Myocardial Infarction: Yes (MOTHER) Social History Alcohol Use: No Tobacco Use: No Substance Use: No Allergies-Medications (Allergen,Severity, Reaction): Coded Allergies: No Known Allergies (Verified , 10/30/16) Reported Meds & Prescriptions Reported Meds & Active Scripts Active Breatherite MDI Space/Aerosol-Holding Chamber (Spacer/Breatherite MDI Aerosol- Holding Chamb) 1 Mis Mis 1 Ea .ROUTE DIRECTED Proventil Hfa 6.7 GM Inh (Albuterol Sulfate) 90 Mcg/Act Aer 2 Puff INH Q4-6H PRN Benzonatate 100 Mg Cap 100 Mg PO TID PRN Senna Plus 8.6-50 mg (Sennosides-Docusate Sodium) 1 Tab Tab 2 Tab PO BID PRN Reported Lisinopril-Hctz 20-12.5 Mg Tab 1 Tab PO DAILY Novolog Inj (Insulin Aspart) 1,000 Unit/10 Ml Vial 0 SQ ACHS SLIDING SCALE Sliding Scale as directed. Levemir Inj (Insulin Detemir) 1,000 unit/ 10 ML Vial 25 Units SQ HS Do not mix with any other Insulin. Protonix (Pantoprazole Sodium) 40 Mg Tab 40 Mg PO PRN PRN Amlodipine (Amlodipine Besylate) 5 Mg Tab 5 Mg PO BID Review of Systems Except as stated in HPI: all other systems reviewed are Neg General / Constitutional: No: Fever, Chills HENT: No: Congestion Cardiovascular: Positive: Palpitations, Tachycardia, No: Chest Pain or Discomfort Respiratory: Positive: Cough, No: Wheezing Gastrointestinal: Positive: Diarrhea, Abdominal Pain, No: Nausea, Vomiting Genitourinary: Positive: Dysuria (chronic chronic) Musculoskeletal: No: Myalgias, Arthralgias Skin: No Rash Neurologic: No: Weakness Psychiatric: Positive: Anxiety Endocrine: No: Heat Intolerance Hematologic/Lymphatic: No: Easy Bruising Physical Exam Narrative GENERAL: Well-developed well-nourished elderly female in no acute distress no respiratory distress SKIN: Warm and dry. HEAD: Normocephalic. EYES: No scleral icterus. No injection or drainage. NECK: Supple, trachea midline. No JVD or lymphadenopathy. CARDIOVASCULAR: Regular rate and rhythm without murmurs, gallops, or rubs. RESPIRATORY: Breath sounds equal bilaterally intermittent rhonchi. No accessory muscle use. GASTROINTESTINAL: Abdomen soft, non-tender, nondistended. MUSCULOSKELETAL: No cyanosis, or edema. BACK: Nontender without obvious deformity. No CVA tenderness. Data Data Last Documented VS Vital Signs Date Time Temp Pulse Resp B/P Pulse Ox O2 Delivery O2 Flow Rate FiO2 10/31/16 01:33 82 20 136/87 97 Room Air 10/30/16 22:47 97.5 Orders Complete Blood Count With Diff (10/30/16 23:42) Basic Metabolic Panel (Bmp) (10/30/16 23:42) Magnesium (Mg) (10/30/16 23:42) Ckmb (Isoenzyme) Profile (10/30/16 23:42) Troponin I (10/30/16 23:42) Urinalysis - C+S If Indicated (10/30/16 23:42) Iv Access Insert/Monitor (10/30/16 23:42) Electrocardiogram (10/30/16 23:42) Ecg Monitoring (10/30/16 23:42) Oximetry (10/30/16 23:42) Oxygen Administration (10/30/16 23:42) Chest, Single Ap (10/30/16 23:42) Sodium Chloride 0.9% Flush (Ns Flush) (10/30/16 23:45) Blood Culture (10/30/16 23:42) Lactic Acid (10/30/16 23:42) Wet Prep Profile (10/31/16 01:52) Labs Laboratory Tests Test 10/30/16 10/30/16 10/31/16 23:56 23:59 01:50 Lactic Acid Level 1.3 mmol/L White Blood Count 4.3 TH/MM3 Red Blood Count 4.34 MIL/MM3 Hemoglobin 12.5 GM/DL Hematocrit 37.0 % Mean Corpuscular Volume 85.2 FL Mean Corpuscular Hemoglobin 28.8 PG Mean Corpuscular Hemoglobin 33.8 % Concent Red Cell Distribution Width 14.0 % Platelet Count 190 TH/MM3 Mean Platelet Volume 8.2 FL Neutrophils (%) (Auto) 44.7 % Lymphocytes (%) (Auto) 42.3 % Monocytes (%) (Auto) 9.8 % Eosinophils (%) (Auto) 2.6 % Basophils (%) (Auto) 0.6 % Neutrophils # (Auto) 1.9 TH/MM3 Lymphocytes # (Auto) 1.8 TH/MM3 Monocytes # (Auto) 0.4 TH/MM3 Eosinophils # (Auto) 0.1 TH/MM3 Basophils # (Auto) 0.0 TH/MM3 CBC Comment DIFF FINAL Differential Comment Urine Color COLORLESS Urine Turbidity CLEAR Urine pH 6.0 Urine Specific Paulina 1.002 Urine Protein NEG mg/dL Urine Glucose (UA) NEG mg/dL Urine Ketones NEG mg/dL Urine Occult Blood NEG Urine Nitrite NEG Urine Bilirubin NEG Urine Urobilinogen LESS THAN 2.0 MG/DL Urine Leukocyte Esterase NEG Urine WBC LESS THAN 1 /hpf Microscopic Urinalysis Comment CULT NOT INDICATED Sodium Level 134 MEQ/L Potassium Level 3.8 MEQ/L Chloride Level 96 MEQ/L Carbon Dioxide Level 29.4 MEQ/L Anion Gap 9 MEQ/L Blood Urea Nitrogen 18 MG/DL Creatinine 0.89 MG/DL Estimat Glomerular Filtration 74 ML/MIN Rate Random Glucose 127 MG/DL Calcium Level 9.3 MG/DL Magnesium Level 1.8 MG/DL Total Creatine Kinase 92 U/L Troponin I LESS THAN 0.02 NG/ML Clue Cells (Wet Prep) NONE SEEN Vaginal Trichomonas (Wet Prep) NONE SEEN Vaginal Yeast (Wet Prep) NONE SEEN MDM Medical Decision Making Medical Screen Exam Complete: Yes Emergency Medical Condition: Yes Medical Record Reviewed: Yes Interpretation(s) EKG normal sinus rhythm rate 78 mild T-wave inversion V1 aVL no acute ST elevation CK: 92, not elevated; Troponin I less than 0.02, not elevated Urinalysis: Within normal limits Last Impressions Chest X-Ray 10/30/16 9202 Signed Impressions: Service Date/Time: October 00:04 - CONCLUSION: Stable chest with no acute cardiopulmonary process to explain current clinical symptoms. Paco Rojas MD CBC & BMP Diagram 10/30/16 23:59 Vital Signs Date Time Temp Pulse Resp B/P Pulse Ox O2 Delivery O2 Flow Rate FiO2 10/31/16 01:33 82 20 136/87 97 Room Air 10/30/16 23:31 87 22 181/80 97 Room Air 10/30/16 22:47 97.5 91 18 168/78 98 Lactic acid: 1.3, not elevated wet prep: negative Differential Diagnosis Cough, bronchitis, pneumonia, CHF, ACS Narrative Course Patient presents with cough productive of thick white sputum no hemoptysis no pink tinged sputum afebrile without rales to auscultation patient was just seen yesterday for same complaint has not been using Tessalon Perles; EKG shows no acute ST elevation or injury pattern change cardiac enzymes are within normal range total white cell count within normal limits yesterday with lymphocytosis influenza test yesterday negative. Patient is scheduled to see her doctor this week. Lab values found to be grossly within normal limits; patient stable for outpatient management; provided with prescription for albuterol inhaler to use as needed for cough as well as has prescription for Tessalon Perles; patient is encouraged to monitor blood sugar closely and continue take medications as prescribed. Patient resting comfortably vital signs have normalized the patient is stable for outpatient management; patient is aware wet prep is negative for yeast infection; again patient is encouraged to follow-up with her primary care provider and to return to the emergency department as needed Diagnosis Primary Impression: Cough Additional Impressions: Bronchitis Atrophic vaginitis Referrals: Primary Care Physician 1 day Patient Instructions: General Instructions Additional Instructions: Increase fluid hydration follow diabetic diet closely Take medications as prescribed Follow-up with your primary care provider call office in a.m. to schedule follow -up appointment Return to the emergency department for any concerns or change in condition Monitor temperature every 4 hours with thermometer take acetaminophen as needed for fever 100.4F or greater Med/Other Pt SpecificInfo: Prescription(s) given Scripts Spacer/Breatherite MDI Aerosol-Holding Chamb (Breatherite MDI Space/Aerosol- Holding Chamber)1 Mis Mis #1 EA .ROUTE DIRECTED Ref 0 Prov:Yarelis Canseco MD 10/31/16 Albuterol 6.7 GM Inh (Proventil Hfa 6.7 GM Inh)90 Mcg/Act Aer2 Puff INH Q4-6H PRN (SHORTNESS OF BREATH) #1 INHALER Ref 0 Prov:Yarelis Canseco MD 10/31/16 Disposition: 01 DISCHARGE HOME Condition: Stable Yarelis Canseco MD Oct 30, 2016 23:51
[2016-10-31 00:18] LABS: BLOOD, URINE NEG (NEG); GLUCOSE,URINE NEG (NEG); KETONE, URINE NEG (NEG); NITRITE,URINE NEG (NEG); URINE COLOR COLORLESS (YELLW/STRAW)
--- NOTE | 2016-10-31 00:22 | RADRPT ---
EXAM DATE/TIME: 10/31/2016 00:04 [facility] COMPARISON: CHEST SINGLE AP, October 29, 2016, 23:02. INDICATIONS : Shortness of breath. MEDICAL HISTORY : Diabetes mellitus type II. Cardiovascular disease. Hypertension. SURGICAL HISTORY : None. ENCOUNTER: Subsequent ACUITY: 2 days PAIN SCORE: 0/10 LOCATION: Bilateral chest FINDINGS: A single view of the chest demonstrates the lungs to be symmetrically aerated without evidence of mas s, infiltrate or effusion. The cardiomediastinal contours are unremarkable. Old healed fracture defo rmity in the posterolateral right mid ribs. Osseous structures are otherwise intact. CONCLUSION: Stable chest with no acute cardiopulmonary process to explain current clinical symptoms. Paco Rojas MD on October 31, 2016 at 0:19 Board Certified Radiologist. This report was verified electronically.
[2016-10-31 00:32] LABS: AUTOMATED NEUTROPHIL # 1.9 TH/MM3 (1.8-7.7); BASOPHIL % 0.6 % (0.0-2.0); COMMENT (UR) CULT NOT INDICATED; CULTURE IF INDICATED CULT NOT INDICATED; EOSINOPHIL # 0.1 TH/MM3 (0-0.4); EOSINOPHIL % 2.6 % (0.0-4.0); HEMO FLAGS DIFF FINAL; LYMPH % 42.3 % (9.0-44.0); LYMPHOCYTE # 1.8 TH/MM3 (1.0-4.8); MEAN CELL VOLUME 85.2 FL (80.0-100.0); MEAN CORPUSCULAR HEMOGLOBIN 28.8 PG (27.0-34.0); MEAN CORPUSCULAR HGB CONC 33.8 % (32.0-36.0); MONO % 9.8 % (0.0-8.0); NEUT % 44.7 % (16.0-70.0); PLATELET COUNT 190 TH/MM3 (150-450); RED BLOOD COUNT 4.34 MIL/MM3 (4.00-5.30); WHITE BLOOD COUNT 4.3 TH/MM3 (4.0-11.0)
[2016-10-31 00:44] LABS: ANION GAP 9 MEQ/L (5-15); BICARBONATE 29.4 MEQ/L (21.0-32.0); BLOOD UREA NITROGEN 18 MG/DL (7-18); CHLORIDE 96 MEQ/L (98-107); GLOMERULAR FILTRATION RATE 74 ML/MIN (>89); MAGNESIUM 1.8 MG/DL (1.5-2.5); SODIUM (NA) 134 MEQ/L (136-145)
[2016-10-31 00:45] LABS: CREATINE KINASE 92 U/L (26-192); POTASSIUM 3.8 MEQ/L (3.5-5.1)
[2016-10-31 01:33] VITALS: BP 136/87; PULSE 82; RESP 20; O2SAT 97
[2016-10-31] MEDS ORDERED: BREAMIS5 (02:10)
[2016-10-31] MEDS ORDERED: ALBU6.7H INH (02:10)
--- NOTE | 2016-10-31 13:27 | EKG ---
Date Performed: 10/31/2016 Time Performed: 00:17:24 PTAGE: 81 years EKG: Sinus rhythm BORDERLINE FIRST DEGREE AV BLOCK LATERAL INTERIOR ABNORMALITY NON SPECIFIC ANTERIOR T WAVE ABNORMALI TY SUGGESTIVE OF EARLY REPOLARIZATION Compared to prior tracing no significant change PREVIOUS TRACING : 10/29/2016 23.28 DOCTOR: Tae Shaffer Interpretating Date/Time 10/31/2016 13:27:07
== END 2016-10-31 03:13 | disposition home or self-care (01) ==
LOC: NEPC 22:31
DX: J40 Bronchitis, not specified as acute or chronic (principal); N95.2 Postmenopausal atrophic vaginitis; R10.9 Unspecified abdominal pain; R19.7 Diarrhea, unspecified; R30.0 Dysuria; R94.31 Abnormal electrocardiogram [ECG] [EKG]; E11.9 Type 2 diabetes mellitus without complications; I10 Essential (primary) hypertension; E78.5 Hyperlipidemia, unspecified; I25.10 Atherosclerotic heart disease of native coronary artery without angina pectoris; Z79.82 Long term (current) use of aspirin; Z79.4 Long term (current) use of insulin; Z86.79 Personal history of other diseases of the circulatory system; Z87.39 Personal history of other diseases of the musculoskeletal system and connective tissue; Z87.19 Personal history of other diseases of the digestive system
CPT/HCPCS: 71010; 80048; 81001; 82550; 83605; 83735; 84484; 85025; 87040; 87210; 93005

== ENCOUNTER 2016-11-24 00:14 | Emergency (ER) | payer MEDICAID, MEDICARE ==
[~2016-11-24 00:14] MED LIST changes: +ALBU6.7H INH; +BREAMIS5; +LISI20TA PO
[2016-11-24 00:17] VITALS: BP 199/97; PULSE 121; RESP 16; TEMP 97.4; O2SAT 96
[2016-11-24] MEDS ORDERED: SODIUM CHLORIDE 0.9% FLUSH 10 ML FLUSH IVF PRN (00:45)
[2016-11-24 00:56] VITALS: RESP 20; O2SAT 99
--- NOTE | 2016-11-24 01:07 | RADRPT ---
EXAM DATE/TIME: 11/24/2016 00:36 [facility] COMPARISON: CHEST SINGLE AP, October 31, 2016, 0:04. INDICATIONS : Chest pain. MEDICAL HISTORY : Hypertension. Cardiovascular disease. Diabetes mellitus type II. SURGICAL HISTORY : None. ENCOUNTER: Initial ACUITY: 1 day PAIN SCORE: 4/10 LOCATION: Bilateral chest FINDINGS: Portable AP view of the chest demonstrates a normal-sized cardiac silhouette. No effusion, consolidat ion, or pneumothorax is visualized. The bones and soft tissues demonstrate no acute abnormality. CONCLUSION: No acute cardiopulmonary abnormality is identified. Eliezer Davenport MD on November 24, 2016 at 1:06 Board Certified Radiologist. This report was verified electronically.
--- NOTE | 2016-11-24 01:10 | PD ---
HPI Chief Complaint: Cardiac Complaint Time Seen by Provider: 00:32 Travel History International Travel<30 days: No Contact w/Intl Traveler<30days: No Traveled to known affect area: No History of Present Illness HPI 81-year-old female with history of CAD with previous PCI 3, diabetes here with complaint of palpitations. Patient states that throughout the day she has had a fluttery-type feeling in her chest. Her heart seems to race and skipped beats. No pain with this, no shortness of breath. Patient tried her home nitroglycerin which did not improve her symptoms prompting ER visit. She denies any history of arrhythmia. Otherwise eating and drinking normally, no nausea vomiting diarrhea or fevers or chills. PFSH Past Medical History Hx Anticoagulant Therapy: Yes (ASA) Arthritis: Yes Heart Rhythm Problems: Yes Cardiac Catheterization: Yes (STENTS X3) Cardiovascular Problems: Yes (STENT x3 AL) High Cholesterol: Yes Congestive Heart Failure: No Diabetes: Yes Patient Takes Glucophage: No Diminished Hearing: No Gastrointestinal Disorders: Yes Heparin Induced Thrombocytopen: No Hypertension: Yes Immunizations Current: Yes Myocardial Infarction: Yes Influenza Vaccination: Yes Menopausal: Yes : 7 Para: 7 Miscarriage: 0 : 0 Past Surgical History Coronary Artery Bypass Graft: No Gynecologic Surgery: Yes (HYSTERECTOMY) Hysterectomy: Yes Other Surgery: Yes Family History Family Myocardial Infarction: Yes (MOTHER) Social History Alcohol Use: No Tobacco Use: No Substance Use: No Allergies-Medications (Allergen,Severity, Reaction): Coded Allergies: No Known Allergies (Verified , 11/24/16) Reported Meds & Prescriptions Reported Meds & Active Scripts Active Breatherite MDI Space/Aerosol-Holding Chamber (Spacer/Breatherite MDI Aerosol- Holding Chamb) 1 Mis Mis 1 Ea .ROUTE DIRECTED Proventil Hfa 6.7 GM Inh (Albuterol Sulfate) 90 Mcg/Act Aer 2 Puff INH Q4-6H PRN Senna Plus 8.6-50 mg (Sennosides-Docusate Sodium) 1 Tab Tab 2 Tab PO BID PRN Reported Lisinopril-Hctz 20-12.5 Mg Tab 1 Tab PO DAILY Novolog Inj (Insulin Aspart) 1,000 Unit/10 Ml Vial 0 SQ ACHS SLIDING SCALE Sliding Scale as directed. Levemir Inj (Insulin Detemir) 1,000 unit/ 10 ML Vial 25 Units SQ HS Do not mix with any other Insulin. Protonix (Pantoprazole Sodium) 40 Mg Tab 40 Mg PO PRN PRN Amlodipine (Amlodipine Besylate) 5 Mg Tab 5 Mg PO BID Review of Systems Except as stated in HPI: all other systems reviewed are Neg Physical Exam Narrative GENERAL: Elderly female with no acute distress SKIN: Focused skin assessment warm/dry. HEAD: Normocephalic. EYES: No scleral icterus. No injection or drainage. ENT: No nasal bleeding or discharge. Mucous membranes pink and moist. NECK: Supple. CARDIOVASCULAR: Tachycardic with heart rate in the 110s, regular rhythm. No murmur appreciated. RESPIRATORY: No accessory muscle use. Clear to auscultation. Breath sounds equal bilaterally. GASTROINTESTINAL: Abdomen soft, non-tender, nondistended. MUSCULOSKELETAL: No obvious deformities. No edema. NEUROLOGICAL: Awake and alert. Normal speech. PSYCHIATRIC: Appropriate mood and affect; insight and judgment normal. Data Data Last Documented VS Vital Signs Date Time Temp Pulse Resp B/P Pulse Ox O2 Delivery O2 Flow Rate FiO2 11/24/16 02:33 93 18 146/66 95 Room Air 11/24/16 00:17 97.4 Orders Electrocardiogram (11/24/16 ) Basic Metabolic Panel (Bmp) (11/24/16 00:38) Complete Blood Count With Diff (11/24/16 00:38) Magnesium (Mg) (11/24/16 00:38) Prothrombin Time / Inr (Pt) (11/24/16 00:38) Act Partial Throm Time (Ptt) (11/24/16 00:38) Troponin I (11/24/16 00:38) Chest, Single Ap (11/24/16 00:38) Ecg Monitoring (11/24/16 00:38) Iv Access Insert/Monitor (11/24/16 00:38) Oximetry (11/24/16 00:38) Sodium Chloride 0.9% Flush (Ns Flush) (11/24/16 00:45) Thyroid Stimulating Hormone (11/24/16 00:38) Sodium Chlorid 0.9% 500 Ml Inj (Ns 500 M (11/24/16 01:15) Free T3 (11/24/16 01:55) Free Thyroxine (T4) (11/24/16 01:55) Labs Laboratory Tests Test 11/24/16 00:35 White Blood Count 4.7 TH/MM3 Red Blood Count 4.35 MIL/MM3 Hemoglobin 12.3 GM/DL Hematocrit 37.1 % Mean Corpuscular Volume 85.1 FL Mean Corpuscular Hemoglobin 28.3 PG Mean Corpuscular Hemoglobin 33.2 % Concent Red Cell Distribution Width 13.3 % Platelet Count 147 TH/MM3 Mean Platelet Volume 9.4 FL Neutrophils (%) (Auto) 46.9 % Lymphocytes (%) (Auto) 39.9 % Monocytes (%) (Auto) 9.7 % Eosinophils (%) (Auto) 2.7 % Basophils (%) (Auto) 0.8 % Neutrophils # (Auto) 2.2 TH/MM3 Lymphocytes # (Auto) 1.9 TH/MM3 Monocytes # (Auto) 0.5 TH/MM3 Eosinophils # (Auto) 0.1 TH/MM3 Basophils # (Auto) 0.0 TH/MM3 CBC Comment DIFF FINAL Differential Comment Prothrombin Time 10.8 SEC Prothromb Time International 1.0 RATIO Ratio Activated Partial 21.4 SEC Thromboplast Time Sodium Level 126 MEQ/L Potassium Level 5.2 MEQ/L Chloride Level 93 MEQ/L Carbon Dioxide Level 27.3 MEQ/L Anion Gap 6 MEQ/L Blood Urea Nitrogen 28 MG/DL Creatinine 0.95 MG/DL Estimat Glomerular Filtration 68 ML/MIN Rate Random Glucose 263 MG/DL Calcium Level 9.2 MG/DL Magnesium Level 1.8 MG/DL Troponin I LESS THAN 0.02 NG/ML Free Thyroxine 2.12 NG/DL Free Triiodothyronine (T3) 6.21 PG/ML pg/dL Thyroid Stimulating Hormone LESS THAN 3rd Gen 0.005 uIU/ML MDM Medical Decision Making Medical Screen Exam Complete: Yes Emergency Medical Condition: Yes Medical Record Reviewed: Yes Differential Diagnosis 81-year-old female with history of CAD with previous PCI 3, diabetes here with complaint of palpitations 1 day. Differential includes electrolyte abnormality , arrhythmia, symptomatic anemia, hyperthyroidism, and less likely ACS, new onset heart failure. Narrative Course Patient placed on monitor, IV established and blood obtained. A twelve-lead EKG shows sinus rhythm with first-degree AV block but no notable ST abnormalities, otherwise normal intervals. Patient given 500 mL normal saline bolus. Portable chest x-ray obtained that by my read shows no acute abnormalities. CBC, BMP, magnesium, troponin, coags, TSH obtained and notable for hyponatremia sodium 126, history of same. Potassium 5.2 though hemolyzed. TSH undetectable and therefore free T3 and T4 were obtained. Both are slightly elevated. T4 - 2.12, T3 - 6.21. Patient's heart rate has normalized and she is feeling improved. Hyperthyroidism could certainly be contributing to her palpitations. She has not had any arrhythmias on the monitor since her ER arrival. We'll discharge home with outpatient follow-up for hyperthyroidism. Diagnosis Primary Impression: Hyperthyroidism Additional Impression: Palpitations Referrals: Primary Care Physician 2 days Additional Instructions: Follow-up with primary care physician as discussed. Med/Other Pt SpecificInfo: No Change to Meds Disposition: 01 DISCHARGE HOME Condition: Stable Ekta Lam MD Nov 24, 2016 01:10
[2016-11-24 01:13] LABS: AUTOMATED NEUTROPHIL # 2.2 TH/MM3 (1.8-7.7); BASOPHIL % 0.8 % (0.0-2.0); EOSINOPHIL # 0.1 TH/MM3 (0-0.4); EOSINOPHIL % 2.7 % (0.0-4.0); HEMATOCRIT 37.1 % (35.0-46.0); HEMO FLAGS DIFF FINAL; LYMPH % 39.9 % (9.0-44.0); LYMPHOCYTE # 1.9 TH/MM3 (1.0-4.8); MEAN CELL VOLUME 85.1 FL (80.0-100.0); MEAN CORPUSCULAR HEMOGLOBIN 28.3 PG (27.0-34.0); MEAN CORPUSCULAR HGB CONC 33.2 % (32.0-36.0); MONO % 9.7 % (0.0-8.0); NEUT % 46.9 % (16.0-70.0); PLATELET COUNT 147 TH/MM3 (150-450); RED BLOOD COUNT 4.35 MIL/MM3 (4.00-5.30); RED CELL DISTRIBUTION WIDTH 13.3 % (11.6-17.2); WHITE BLOOD COUNT 4.7 TH/MM3 (4.0-11.0)
[2016-11-24] MEDS ORDERED: SODIUM CHLORID 0.9% 500 ML INJ 500 ML IV ONE (01:15)
[2016-11-24 01:17] LABS: APTT (PATIENT) 21.4 SEC (24.3-30.1); PROTHROMBIN TIME - PATIENT 10.8 SEC (9.8-11.6)
[2016-11-24 01:44] LABS: ANION GAP 6 MEQ/L (5-15); BICARBONATE 27.3 MEQ/L (21.0-32.0); BLOOD UREA NITROGEN 28 MG/DL (7-18); CHLORIDE 93 MEQ/L (98-107); GLOMERULAR FILTRATION RATE 68 ML/MIN (>89); MAGNESIUM 1.8 MG/DL (1.5-2.5); SODIUM (NA) 126 MEQ/L (136-145)
[2016-11-24 01:45] VITALS: BP 175/81; PULSE 103
[2016-11-24 01:48] LABS: POTASSIUM 5.2 MEQ/L (3.5-5.1)
[2016-11-24 02:33] VITALS: BP 146/66; PULSE 93; RESP 18; O2SAT 95
[2016-11-24 03:00] LABS: FREE T3 6.21 PG/ML (2.18-3.98); FREE T4 2.12 NG/DL (0.76-1.46)
[2016-11-24 03:45] VITALS: BP 110/56; PULSE 95; RESP 18; O2SAT 95
--- NOTE | 2016-11-24 21:01 | EKG ---
Date Performed: 11/24/2016 Time Performed: 00:29:45 PTAGE: 81 years EKG: SINUS TACHYCARDIA WITH FIRST DEGREE AV BLOCK NONSPECIFIC T-WAVE ABNORMALITY ABNORMAL ECG PREVIOUS TRACING : 10/31/2016 00.17 DOCTOR: Sherin Stephen Interpretating Date/Time 11/24/2016 21:00:33
== END 2016-11-24 03:48 | disposition home or self-care (01) ==
LOC: NEPE 00:14
DX: R94.31 Abnormal electrocardiogram [ECG] [EKG] (principal); E05.90 Thyrotoxicosis, unspecified without thyrotoxic crisis or storm; R00.2 Palpitations; E78.00 Pure hypercholesterolemia, unspecified; E11.9 Type 2 diabetes mellitus without complications; I10 Essential (primary) hypertension; I25.2 Old myocardial infarction; Z79.4 Long term (current) use of insulin; R00.0 Tachycardia, unspecified; I44.0 Atrioventricular block, first degree; I25.10 Atherosclerotic heart disease of native coronary artery without angina pectoris
CPT/HCPCS: 71010; 80048; 83735; 84439; 84443; 84481; 84484; 85025; 85610; 85730; 93005; 96360; 99285; J7040

== ENCOUNTER 2017-01-16 00:09 | Emergency (ER) | payer MEDICARE ==
[~2017-01-16] VITALS: Ht 160 cm; Wt 65.0 kg
[~2017-01-16 00:09] MED LIST changes: -BENZ1CAP8 PO
[2017-01-16 00:22] VITALS: BP 187/83; PULSE 116; RESP 18; TEMP 97.9; O2SAT 97
[2017-01-16 00:34] VITALS: BP 178/83; PULSE 113; RESP 18; O2SAT 100
[2017-01-16 00:54] VITALS: RESP 18; O2SAT 98
[2017-01-16] MEDS ORDERED: ASPIRIN 81 MG CHEW TAB PO ONE (01:00)
[2017-01-16] MEDS ORDERED: SODIUM CHLORIDE 0.9% FLUSH 10 ML FLUSH IVF PRN (01:00)
[2017-01-16] MEDS ORDERED: SODIUM CHLORID 0.9% 500 ML INJ 500 ML IV ONE (01:00)
[2017-01-16 01:06] LABS: AUTOMATED NEUTROPHIL # 3.1 TH/MM3 (1.8-7.7); BASOPHIL % 0.6 % (0.0-2.0); EOSINOPHIL # 0.1 TH/MM3 (0-0.4); EOSINOPHIL % 1.2 % (0.0-4.0); HEMATOCRIT 37.4 % (35.0-46.0); HEMO FLAGS DIFF FINAL; LYMPH % 32.7 % (9.0-44.0); LYMPHOCYTE # 1.7 TH/MM3 (1.0-4.8); MEAN CELL VOLUME 83.2 FL (80.0-100.0); MEAN CORPUSCULAR HEMOGLOBIN 27.7 PG (27.0-34.0); MEAN CORPUSCULAR HGB CONC 33.3 % (32.0-36.0); MONO % 7.6 % (0.0-8.0); NEUT % 57.9 % (16.0-70.0); PLATELET COUNT 191 TH/MM3 (150-450); RED CELL DISTRIBUTION WIDTH 13.4 % (11.6-17.2); WHITE BLOOD COUNT 5.3 TH/MM3 (4.0-11.0)
[2017-01-16 01:15] LABS: INTERNATIONAL NORMALIZED RATIO 0.9 RATIO; PROTHROMBIN TIME - PATIENT 10.2 SEC (9.8-11.6)
[2017-01-16 01:34] LABS: ALKALINE PHOSPHATASE 144 U/L (45-117); ALT (GPT) 19 U/L (10-53); ANION GAP 8 MEQ/L (5-15); AST (GOT) 16 U/L (15-37); BICARBONATE 27.9 MEQ/L (21.0-32.0); BLOOD UREA NITROGEN 32 MG/DL (7-18); CHLORIDE 94 MEQ/L (98-107); CREATINE KINASE 67 U/L (26-192); GLOMERULAR FILTRATION RATE 61 ML/MIN (>89); MAGNESIUM 1.9 MG/DL (1.5-2.5); POTASSIUM 4.2 MEQ/L (3.5-5.1); SODIUM (NA) 130 MEQ/L (136-145); TOTAL BILIRUBIN ADULT 0.2 MG/DL (0.2-1.0)
--- NOTE | 2017-01-16 01:38 | RADRPT ---
EXAM DATE/TIME: 01/16/2017 01:27 [facility] COMPARISON: CHEST SINGLE AP, November 24, 2016, 0:36. INDICATIONS : Shortness of breath. MEDICAL HISTORY : Hypertension. Cardiovascular disease. Diabetes mellitus type II. SURGICAL HISTORY : None. ENCOUNTER: Initial ACUITY: 1 day PAIN SCORE: 0/10 LOCATION: Bilateral chest FINDINGS: A single view of the chest demonstrates the lungs to be symmetrically aerated without evidence of mas s, infiltrate or effusion. The cardiomediastinal contours are unremarkable. Osseous structures are intact. CONCLUSION: Normal examination. Stable deformities of the right sixth and seventh ribs. Marcos Zuñiga MD on January 16, 2017 at 1:36 Board Certified Radiologist. This report was verified electronically.
--- NOTE | 2017-01-16 01:38 | PD ---
HPI Chief Complaint: Cardiac Complaint Time Seen by Provider: 00:44 Travel History International Travel<30 days: No Contact w/Intl Traveler<30days: No Traveled to known affect area: No History of Present Illness HPI Patient is an 81-year-old female with history of hypertension, diabetes, and coronary artery disease who presents to emergency room with complaints of heart palpitations. Patient reports that she has had her palpitations for the past few years, which at the palpitations started after she had 3 stents placed at [facility]. She reports that tonight, she felt her heart was racing, she tried taking one sublingual nitroglycerin to help with her symptoms, reports no relief of symptoms. Patient reports that she is not having any chest pain at this time, patient denies any cough, congestion, denies shortness of breath. PFSH Past Medical History Hx Anticoagulant Therapy: Yes (ASA) Arthritis: Yes Heart Rhythm Problems: Yes Cardiac Catheterization: Yes (STENTS X3) Cardiovascular Problems: Yes (STENT x3 UT) High Cholesterol: Yes Congestive Heart Failure: No Diabetes: Yes Patient Takes Glucophage: Yes Diminished Hearing: No Gastrointestinal Disorders: Yes Heparin Induced Thrombocytopen: No Hypertension: Yes Immunizations Current: Yes Myocardial Infarction: Yes Tetanus Vaccination: Unknown Influenza Vaccination: Yes Menopausal: Yes : 7 Para: 7 Miscarriage: 0 : 0 Past Surgical History Coronary Artery Bypass Graft: No Gynecologic Surgery: Yes (HYSTERECTOMY) Hysterectomy: Yes Other Surgery: Yes Family History Family Myocardial Infarction: Yes (MOTHER) Social History Alcohol Use: No Tobacco Use: No Substance Use: No Allergies-Medications (Allergen,Severity, Reaction): Coded Allergies: No Known Allergies (Verified , 01/16/17) Reported Meds & Prescriptions Reported Meds & Active Scripts Active Breatherite MDI Space/Aerosol-Holding Chamber (Spacer/Breatherite MDI Aerosol- Holding Chamb) 1 Mis Mis 1 Ea .ROUTE DIRECTED Proventil Hfa 6.7 GM Inh (Albuterol Sulfate) 90 Mcg/Act Aer 2 Puff INH Q4-6H PRN Senna Plus 8.6-50 mg (Sennosides-Docusate Sodium) 1 Tab Tab 2 Tab PO BID PRN Reported Lisinopril-Hctz 20-12.5 Mg Tab 1 Tab PO DAILY Novolog Inj (Insulin Aspart) 1,000 Unit/10 Ml Vial 0 SQ ACHS SLIDING SCALE Sliding Scale as directed. Levemir Inj (Insulin Detemir) 1,000 unit/ 10 ML Vial 25 Units SQ HS Do not mix with any other Insulin. Protonix (Pantoprazole Sodium) 40 Mg Tab 40 Mg PO PRN PRN Amlodipine (Amlodipine Besylate) 5 Mg Tab 5 Mg PO BID Review of Systems General / Constitutional: No: Fever Eyes: No: Visual changes HENT: No: Headaches Cardiovascular: Positive: Palpitations, Tachycardia, No: Chest Pain or Discomfort Respiratory: No: Shortness of Breath Gastrointestinal: No: Abdominal Pain Genitourinary: No: Dysuria Musculoskeletal: No: Pain Skin: No Rash Neurologic: No: Weakness Psychiatric: No: Depression Endocrine: No: Polydipsia Hematologic/Lymphatic: No: Easy Bruising Physical Exam Narrative GENERAL: mild distress SKIN: Focused skin assessment warm/dry. HEAD: Atraumatic. Normocephalic. EYES: Pupils equal and round. No scleral icterus. No injection or drainage. ENT: No nasal bleeding or discharge. Mucous membranes pink and moist. NECK: Trachea midline. No JVD. CARDIOVASCULAR: Tachycardia. No murmur appreciated. RESPIRATORY: No accessory muscle use. Clear to auscultation. Breath sounds equal bilaterally. GASTROINTESTINAL: Abdomen soft, non-tender, nondistended. Hepatic and splenic margins not palpable. MUSCULOSKELETAL: No obvious deformities. No clubbing. No cyanosis. No edema. NEUROLOGICAL: Awake and alert. No obvious cranial nerve deficits. Motor grossly within normal limits. Normal speech. PSYCHIATRIC: Appropriate mood and affect; insight and judgment normal. Data Data Last Documented VS Vital Signs Date Time Temp Pulse Resp B/P Pulse Ox O2 Delivery O2 Flow Rate FiO2 01/16/17 00:54 18 98 Room Air 01/16/17 00:34 113 178/83 01/16/17 00:22 97.9 Orders B-Type Natriuretic Peptide (01/16/17 00:52) Ckmb (Isoenzyme) Profile (01/16/17 00:52) Complete Blood Count With Diff (01/16/17 00:52) Comprehensive Metabolic Panel (01/16/17 00:52) Magnesium (Mg) (01/16/17 00:52) Prothrombin Time / Inr (Pt) (01/16/17 00:52) Act Partial Throm Time (Ptt) (01/16/17 00:52) Troponin I (5/25/17 00:52) Chest, Single Ap (01/16/17 00:52) Ecg Monitoring (01/16/17 00:52) Iv Access Insert/Monitor (01/16/17 00:52) Oximetry (01/16/17 00:52) Aspirin Chew (Aspirin Chew) (01/16/17 01:00) Sodium Chloride 0.9% Flush (Ns Flush) (01/16/17 01:00) Sodium Chlorid 0.9% 500 Ml Inj (Ns 500 M (01/16/17 01:00) Thyroid Stimulating Hormone (01/16/17 00:57) Labs Laboratory Tests Test 01/16/17 00:57 White Blood Count 5.3 TH/MM3 Red Blood Count 4.50 MIL/MM3 Hemoglobin 12.4 GM/DL Hematocrit 37.4 % Mean Corpuscular Volume 83.2 FL Mean Corpuscular Hemoglobin 27.7 PG Mean Corpuscular Hemoglobin 33.3 % Concent Red Cell Distribution Width 13.4 % Platelet Count 191 TH/MM3 Mean Platelet Volume 8.6 FL Neutrophils (%) (Auto) 57.9 % Lymphocytes (%) (Auto) 32.7 % Monocytes (%) (Auto) 7.6 % Eosinophils (%) (Auto) 1.2 % Basophils (%) (Auto) 0.6 % Neutrophils # (Auto) 3.1 TH/MM3 Lymphocytes # (Auto) 1.7 TH/MM3 Monocytes # (Auto) 0.4 TH/MM3 Eosinophils # (Auto) 0.1 TH/MM3 Basophils # (Auto) 0.0 TH/MM3 CBC Comment DIFF FINAL Differential Comment Prothrombin Time 10.2 SEC Prothromb Time International 0.9 RATIO Ratio Activated Partial 23.0 SEC Thromboplast Time Sodium Level 130 MEQ/L Potassium Level 4.2 MEQ/L Chloride Level 94 MEQ/L Carbon Dioxide Level 27.9 MEQ/L Anion Gap 8 MEQ/L Blood Urea Nitrogen 32 MG/DL Creatinine 1.05 MG/DL Estimat Glomerular Filtration 61 ML/MIN Rate Random Glucose 312 MG/DL Calcium Level 9.3 MG/DL Magnesium Level 1.9 MG/DL Total Bilirubin 0.2 MG/DL Aspartate Amino Transf 16 U/L (AST/SGOT) Alanine Aminotransferase 19 U/L (ALT/SGPT) Alkaline Phosphatase 144 U/L Total Creatine Kinase 67 U/L Troponin I LESS THAN 0.02 NG/ML B-Type Natriuretic Peptide 24 PG/ML Total Protein 8.0 GM/DL Albumin 3.6 GM/DL Thyroid Stimulating Hormone LESS THAN 3rd Gen 0.005 uIU/ML MDM Medical Decision Making Medical Screen Exam Complete: Yes Emergency Medical Condition: Yes Interpretation(s) EKG at 0036: Sinus tachycardia at 112bpm, nonspecific st and t wave changes Vital Signs Date Time Temp Pulse Resp B/P Pulse Ox O2 Delivery O2 Flow Rate FiO2 01/16/17 00:54 18 98 Room Air 01/16/17 00:34 113 18 178/83 100 Room Air 01/16/17 00:24 18 01/16/17 00:22 97.9 116 18 187/83 97 Laboratory Tests Test 01/16/17 00:57 White Blood Count 5.3 TH/MM3 (4.0-11.0) Red Blood Count 4.50 MIL/MM3 (4.00-5.30) Hemoglobin 12.4 GM/DL (11.6-15.3) Hematocrit 37.4 % (35.0-46.0) Mean Corpuscular Volume 83.2 FL (80.0-100.0) Mean Corpuscular Hemoglobin 27.7 PG (27.0-34.0) Mean Corpuscular Hemoglobin 33.3 % Concent (32.0-36.0) Red Cell Distribution Width 13.4 % (11.6-17.2) Platelet Count 191 TH/MM3 (150-450) Mean Platelet Volume 8.6 FL (7.0-11.0) Neutrophils (%) (Auto) 57.9 % (16.0-70.0) Lymphocytes (%) (Auto) 32.7 % (9.0-44.0) Monocytes (%) (Auto) 7.6 % (0.0-8.0) Eosinophils (%) (Auto) 1.2 % (0.0-4.0) Basophils (%) (Auto) 0.6 % (0.0-2.0) Neutrophils # (Auto) 3.1 TH/MM3 (1.8-7.7) Lymphocytes # (Auto) 1.7 TH/MM3 (1.0-4.8) Monocytes # (Auto) 0.4 TH/MM3 (0-0.9) Eosinophils # (Auto) 0.1 TH/MM3 (0-0.4) Basophils # (Auto) 0.0 TH/MM3 (0-0.2) CBC Comment DIFF FINAL Differential Comment Prothrombin Time 10.2 SEC (9.8-11.6) Prothromb Time International 0.9 RATIO Ratio Activated Partial 23.0 SEC Thromboplast Time (24.3-30.1) Differential Diagnosis PE, ACS, arrhythmia, electrolyte abnormality, dehydration Narrative Course Patient is an 81-year-old female who presents to emergency room complaints of palpitations. Patient reports that her symptoms began tonight and has been persistent. Reports that she always has had tachycardia ever since her 3 stents replaced at [facility]. Patient with no chest pain or shortness of breath at this time. She does appear nontoxic. She is tachycardic on exam, plan to obtain lab work, x-ray of the chest, will administer IV fluids and monitor on hospital monitor. I did review patient's previous records, patient was seen in the ER on 11/24/16 with similar complaints. At that time, TSH <0.005. Hypothyroidism was within differential for her symptoms, as this could be a reason for her palpitations. Patient with most of follow-up with her primary care doctor for further workup of her thyroid but has not follow-up yet. Patient understands that she will ultimately need to follow up with her doctor for thyroid workup as this could be causing her symptoms Laboratory Tests Test 01/16/17 00:57 White Blood Count 5.3 TH/MM3 (4.0-11.0) Red Blood Count 4.50 MIL/MM3 (4.00-5.30) Hemoglobin 12.4 GM/DL (11.6-15.3) Hematocrit 37.4 % (35.0-46.0) Mean Corpuscular Volume 83.2 FL (80.0-100.0) Mean Corpuscular Hemoglobin 27.7 PG (27.0-34.0) Mean Corpuscular Hemoglobin 33.3 % Concent (32.0-36.0) Red Cell Distribution Width 13.4 % (11.6-17.2) Platelet Count 191 TH/MM3 (150-450) Mean Platelet Volume 8.6 FL (7.0-11.0) Neutrophils (%) (Auto) 57.9 % (16.0-70.0) Lymphocytes (%) (Auto) 32.7 % (9.0-44.0) Monocytes (%) (Auto) 7.6 % (0.0-8.0) Eosinophils (%) (Auto) 1.2 % (0.0-4.0) Basophils (%) (Auto) 0.6 % (0.0-2.0) Neutrophils # (Auto) 3.1 TH/MM3 (1.8-7.7) Lymphocytes # (Auto) 1.7 TH/MM3 (1.0-4.8) Monocytes # (Auto) 0.4 TH/MM3 (0-0.9) Eosinophils # (Auto) 0.1 TH/MM3 (0-0.4) Basophils # (Auto) 0.0 TH/MM3 (0-0.2) CBC Comment DIFF FINAL Differential Comment Prothrombin Time 10.2 SEC (9.8-11.6) Prothromb Time International 0.9 RATIO Ratio Activated Partial 23.0 SEC Thromboplast Time (24.3-30.1) Sodium Level 130 MEQ/L (136-145) Potassium Level 4.2 MEQ/L (3.5-5.1) Chloride Level 94 MEQ/L (98-107) Carbon Dioxide Level 27.9 MEQ/L (21.0-32.0) Anion Gap 8 MEQ/L (5-15) Blood Urea Nitrogen 32 MG/DL (7-18) Creatinine 1.05 MG/DL (0.50-1.00) Estimat Glomerular Filtration 61 ML/MIN (>89) Rate Random Glucose 312 MG/DL (74-106) Calcium Level 9.3 MG/DL (8.5-10.1) Magnesium Level 1.9 MG/DL (1.5-2.5) Total Bilirubin 0.2 MG/DL (0.2-1.0) Aspartate Amino Transf 16 U/L (15-37) (AST/SGOT) Alanine Aminotransferase 19 U/L (10-53) (ALT/SGPT) Alkaline Phosphatase 144 U/L (45-117) Total Creatine Kinase 67 U/L (26-192) Troponin I LESS THAN 0.02 NG/ML (0.02-0.05) B-Type Natriuretic Peptide 24 PG/ML (0-100) Total Protein 8.0 GM/DL (6.4-8.2) Albumin 3.6 GM/DL (3.4-5.0) Thyroid Stimulating Hormone LESS THAN 3rd Gen 0.005 uIU/ML (0.358-3.740) Patient reevaluated, patient's TSH is less than 0.005, patient's symptoms most likely from hyperthyroidism. I reviewed all labs and all studies with patient in detail. She understands that she needs to follow up with her primary care doctor for further workup of her hyperthyroidism. Patient reports that she is feeling better at this time, requested be discharged home. Signs and symptoms of when to return to emergency room was reviewed patient in detail. Diagnosis Primary Impression: Palpitations Additional Impressions: Hyperthyroidism Hyponatremia Hyperglycemia Patient Instructions: General Instructions Additional Instructions: Please provide patient with a copy of her lab work at discharge Please follow up with your primary care doctor as soon as possible, you will need to have a thyroid workup as this could be causing your symptoms today Please monitor your blood sugar carefully as it was elevated today Please return to ER as needed Please return to ER if symptoms return Disposition: 01 DISCHARGE HOME Condition: Stable Lili Graff DO January 16, 2017 01:38
--- NOTE | 2017-01-16 17:06 | EKG ---
Date Performed: 01/16/2017 Time Performed: 00:36:25 PTAGE: 81 years EKG: SINUS TACHYCARDIA POSSIBLE LEFT ATRIAL ENLARGEMENT NONSPECIFIC ST & T-WAVE ABNORMALITY ABNO RMAL RHYTHM ECG PREVIOUS TRACING : 11/24/2016 00.29 Compared to prior tracing no significant change DOCTOR: Corey Ca Interpretating Date/Time 01/16/2017 17:06:19
== END 2017-01-16 03:12 | disposition home or self-care (01) ==
LOC: NEPC 00:09
DX: R00.2 Palpitations (principal); E87.1 Hypo-osmolality and hyponatremia; E11.65 Type 2 diabetes mellitus with hyperglycemia; E05.90 Thyrotoxicosis, unspecified without thyrotoxic crisis or storm; R94.31 Abnormal electrocardiogram [ECG] [EKG]; I10 Essential (primary) hypertension; Z79.01 Long term (current) use of anticoagulants; R06.02 Shortness of breath
CPT/HCPCS: 71010; 80053; 82550; 83735; 83880; 84443; 84484; 85025; 85610; 85730; 93005; 99284; J7040

== ENCOUNTER 2017-01-18 01:41 | Emergency (ER) | payer MEDICARE ==
[2017-01-18 01:46] VITALS: BP_SYST 168; BP_SYST 193; BP_DIAS 109; BP_DIAS 98; PULSE 132; PULSE 134; RESP 18; RESP 24; TEMP 97.8; O2SAT 100
[2017-01-18 02:22] VITALS: RESP 18; O2SAT 97
[2017-01-18] MEDS ORDERED: SODIUM CHLORIDE 0.9% FLUSH 10 ML FLUSH IVF PRN (02:30)
--- NOTE | 2017-01-18 02:39 | PD ---
HPI Chief Complaint: Diabetic Time Seen by Provider: 02:34 Travel History International Travel<30 days: No Contact w/Intl Traveler<30days: No Traveled to known affect area: No History of Present Illness HPI 81-year-old female patient with history of diabetes, CAD, ID, stents, multiple medical issues, presents to the ER today because she states that she has been feeling shaky today, states her blood sugars are on the low side running at around 100 -110. She states that she is having palpitations. She denies any fevers, chest pains, shortness of breath, vomiting, abdominal pains, or any other symptoms. Modifying Factors: None Associated Signs & Symptoms: Palpitations, feeling shaky Risk Factors: Elderly, multiple medical issues PFSH Past Medical History Hx Anticoagulant Therapy: Yes (ASA) Arthritis: Yes Heart Rhythm Problems: Yes Cardiac Catheterization: Yes (STENTS X3) Cardiovascular Problems: Yes (STENT x3 ID) High Cholesterol: Yes Congestive Heart Failure: No Diabetes: Yes Patient Takes Glucophage: No Diminished Hearing: No Gastrointestinal Disorders: Yes Heparin Induced Thrombocytopen: No Hypertension: Yes Immunizations Current: Yes Myocardial Infarction: Yes ?: Not Menopausal: Yes : 7 Para: 7 Miscarriage: 0 : 0 Past Surgical History Coronary Artery Bypass Graft: No Gynecologic Surgery: Yes (HYSTERECTOMY) Hysterectomy: Yes Other Surgery: Yes Family History Family Myocardial Infarction: Yes (MOTHER) Social History Alcohol Use: No Tobacco Use: No Substance Use: No Allergies-Medications (Allergen,Severity, Reaction): Coded Allergies: No Known Allergies (Verified , 01/18/17) Reported Meds & Prescriptions Reported Meds & Active Scripts Active Breatherite MDI Space/Aerosol-Holding Chamber (Spacer/Breatherite MDI Aerosol- Holding Chamb) 1 Mis Mis 1 Ea .ROUTE DIRECTED Proventil Hfa 6.7 GM Inh (Albuterol Sulfate) 90 Mcg/Act Aer 2 Puff INH Q4-6H PRN Senna Plus 8.6-50 mg (Sennosides-Docusate Sodium) 1 Tab Tab 2 Tab PO BID PRN Reported Lisinopril-Hctz 20-12.5 Mg Tab 1 Tab PO DAILY Novolog Inj (Insulin Aspart) 1,000 Unit/10 Ml Vial 0 SQ ACHS SLIDING SCALE Sliding Scale as directed. Levemir Inj (Insulin Detemir) 1,000 unit/ 10 ML Vial 25 Units SQ HS Do not mix with any other Insulin. Protonix (Pantoprazole Sodium) 40 Mg Tab 40 Mg PO PRN PRN Amlodipine (Amlodipine Besylate) 5 Mg Tab 5 Mg PO BID Review of Systems Except as stated in HPI: all other systems reviewed are Neg Physical Exam Narrative GENERAL: Well-developed elderly -Citizen Of [place] female patient currently in mild distress. Awake and oriented 3. SKIN: Focused skin assessment warm/dry. HEAD: Atraumatic. Normocephalic. EYES: Pupils equal and round. No scleral icterus. No injection or drainage. ENT: No nasal bleeding or discharge. Mucous membranes pink and moist. NECK: Trachea midline. No JVD. CARDIOVASCULAR: Fast and regular rhythm. No murmur appreciated. RESPIRATORY: No accessory muscle use. Clear to auscultation. Breath sounds equal bilaterally. GASTROINTESTINAL: Abdomen soft, non-tender, nondistended. Hepatic and splenic margins not palpable. MUSCULOSKELETAL: No obvious deformities. No clubbing. No cyanosis. No edema. NEUROLOGICAL: Awake and alert. No obvious cranial nerve deficits. Motor grossly within normal limits. Normal speech. PSYCHIATRIC: Appropriate mood and affect; insight and judgment normal. Data Data Last Documented VS Vital Signs Date Time Temp Pulse Resp B/P Pulse Ox O2 Delivery O2 Flow Rate FiO2 01/18/17 05:00 98.5 103 18 178/92 99 Room Air Orders Electrocardiogram (01/18/17 02:19) Complete Blood Count With Diff (01/18/17 02:19) Comprehensive Metabolic Panel (01/18/17 02:19) Magnesium (Mg) (01/18/17 02:19) Ckmb (Isoenzyme) Profile (01/18/17 02:19) Troponin I (01/18/17 02:19) Urinalysis - C+S If Indicated (01/18/17 02:19) Ecg Monitoring (01/18/17 02:19) Iv Access Insert/Monitor (01/18/17 02:19) Oximetry (01/18/17 02:19) Sodium Chloride 0.9% Flush (Ns Flush) (01/18/17 02:30) CKMB (01/18/17 02:30) CKMB% (01/18/17 02:30) Insulin Human Regular Inj (Novolin R Inj (01/18/17 03:45) Sodium Chlorid 0.9% 500 Ml Inj (Ns 500 M (01/18/17 03:45) Chest, Single Ap (01/18/17 03:39) Labs Laboratory Tests Test 01/18/17 01/18/17 02:00 02:30 Urine Color COLORLESS Urine Turbidity CLEAR Urine pH 5.0 Urine Specific Scott 1.001 Urine Protein NEG mg/dL Urine Glucose (UA) 1000 mg/dL Urine Ketones NEG mg/dL Urine Occult Blood NEG Urine Nitrite NEG Urine Bilirubin NEG Urine Urobilinogen LESS THAN 2.0 MG/DL Urine Leukocyte Esterase NEG Urine RBC LESS THAN 1 /hpf Urine WBC 1 /hpf Urine Mucus FEW /lpf Microscopic Urinalysis Comment CULT NOT INDICATED White Blood Count 5.0 TH/MM3 Red Blood Count 4.49 MIL/MM3 Hemoglobin 12.5 GM/DL Hematocrit 36.9 % Mean Corpuscular Volume 82.2 FL Mean Corpuscular Hemoglobin 27.9 PG Mean Corpuscular Hemoglobin 33.9 % Concent Red Cell Distribution Width 13.1 % Platelet Count 189 TH/MM3 Mean Platelet Volume 8.8 FL Neutrophils (%) (Auto) 63.7 % Lymphocytes (%) (Auto) 26.3 % Monocytes (%) (Auto) 7.9 % Eosinophils (%) (Auto) 1.2 % Basophils (%) (Auto) 0.9 % Neutrophils # (Auto) 3.2 TH/MM3 Lymphocytes # (Auto) 1.3 TH/MM3 Monocytes # (Auto) 0.4 TH/MM3 Eosinophils # (Auto) 0.1 TH/MM3 Basophils # (Auto) 0.0 TH/MM3 CBC Comment DIFF FINAL Differential Comment Sodium Level 131 MEQ/L Potassium Level 5.2 MEQ/L Chloride Level 96 MEQ/L Carbon Dioxide Level 26.4 MEQ/L Anion Gap 9 MEQ/L Blood Urea Nitrogen 27 MG/DL Creatinine 1.12 MG/DL Estimat Glomerular Filtration 57 ML/MIN Rate Random Glucose 393 MG/DL Calcium Level 9.2 MG/DL Magnesium Level 1.8 MG/DL Total Bilirubin 0.3 MG/DL Aspartate Amino Transf 34 U/L (AST/SGOT) Alanine Aminotransferase 22 U/L (ALT/SGPT) Alkaline Phosphatase 137 U/L Total Creatine Kinase 126 U/L Creatine Kinase MB 2.4 NG/ML Troponin I LESS THAN 0.02 NG/ML Total Protein 8.0 GM/DL Albumin 3.4 GM/DL MDM Medical Decision Making Medical Screen Exam Complete: Yes Emergency Medical Condition: Yes Medical Record Reviewed: Yes Interpretation(s) EKG shows sinus tachycardia rate of 117 bpm, no ST elevation or depression, and no arrhythmias. No significant T-wave inversions. Laboratory Tests Test 01/18/17 01/18/17 02:00 02:30 Urine Specific Scott 1.001 (1.002-1.035) Urine Glucose (UA) 1000 mg/dL (NEG) Urine Mucus FEW /lpf (OCC) Sodium Level 131 MEQ/L (136-145) Potassium Level 5.2 MEQ/L (3.5-5.1) Chloride Level 96 MEQ/L (98-107) Blood Urea Nitrogen 27 MG/DL (7-18) Creatinine 1.12 MG/DL (0.50-1.00) Estimat Glomerular Filtration 57 ML/MIN (>89) Rate Random Glucose 393 MG/DL (74-106) Alkaline Phosphatase 137 U/L (45-117) Troponin I LESS THAN 0.02 NG/ML (0.02-0.05) Differential Diagnosis Palpitations, shakiness, low blood sugarshypoglycemia versus metabolic issues versus dehydration versus dysrhythmias Narrative Course Patient's lab work returns showing hyperglycemia. Patient was given IV fluids and insulin in the ER. EKG shows sinus tachycardia but was otherwise unremarkable. At this point, we do not see other significant issues and my plan would be to release her with follow-up to primary care physician. She is ambulatory in the ER without issues. The plan was discussed with her and she states understanding. Diagnosis Primary Impression: Hyponatremia Additional Impressions: Hyperglycemia Palpitations Disposition: 01 DISCHARGE HOME Condition: Stable Mehul Ford MD January 18, 2017 02:39
[2017-01-18 02:48] LABS: AUTOMATED NEUTROPHIL # 3.2 TH/MM3 (1.8-7.7); BASOPHIL % 0.9 % (0.0-2.0); EOSINOPHIL # 0.1 TH/MM3 (0-0.4); EOSINOPHIL % 1.2 % (0.0-4.0); HEMATOCRIT 36.9 % (35.0-46.0); HEMO FLAGS DIFF FINAL; LYMPH % 26.3 % (9.0-44.0); LYMPHOCYTE # 1.3 TH/MM3 (1.0-4.8); MEAN CELL VOLUME 82.2 FL (80.0-100.0); MEAN CORPUSCULAR HEMOGLOBIN 27.9 PG (27.0-34.0); MEAN CORPUSCULAR HGB CONC 33.9 % (32.0-36.0); MONO % 7.9 % (0.0-8.0); NEUT % 63.7 % (16.0-70.0); PLATELET COUNT 189 TH/MM3 (150-450); RED BLOOD COUNT 4.49 MIL/MM3 (4.00-5.30); RED CELL DISTRIBUTION WIDTH 13.1 % (11.6-17.2)
[2017-01-18 02:58] LABS: BLOOD, URINE NEG (NEG); COMMENT (UR) CULT NOT INDICATED; CULTURE IF INDICATED CULT NOT INDICATED; GLUCOSE,URINE 1000 mg/dL (NEG); KETONE, URINE NEG (NEG); MUCUS URINE FEW /lpf (OCC); NITRITE,URINE NEG (NEG); URINE COLOR COLORLESS (YELLW/STRAW)
[2017-01-18 03:25] LABS: ANION GAP 9 MEQ/L (5-15); AST (GOT) 34 U/L (15-37); BICARBONATE 26.4 MEQ/L (21.0-32.0); BLOOD UREA NITROGEN 27 MG/DL (7-18); CHLORIDE 96 MEQ/L (98-107); GLOMERULAR FILTRATION RATE 57 ML/MIN (>89); MAGNESIUM 1.8 MG/DL (1.5-2.5); SODIUM (NA) 131 MEQ/L (136-145)
[2017-01-18 03:26] LABS: ALKALINE PHOSPHATASE 137 U/L (45-117); ALT (GPT) 22 U/L (10-53); CREATINE KINASE 126 U/L (26-192); TOTAL BILIRUBIN ADULT 0.3 MG/DL (0.2-1.0)
[2017-01-18 03:27] LABS: POTASSIUM 5.2 MEQ/L (3.5-5.1)
[2017-01-18 03:42] LABS: CKMB 2.4 NG/ML (0.5-3.6)
[2017-01-18] MEDS ORDERED: INSULIN HUMAN REGULAR 1,000 UNITS/10 ML VIAL IV PUSH ONE (03:45)
[2017-01-18] MEDS ORDERED: SODIUM CHLORID 0.9% 500 ML INJ 500 ML IV ONE (03:45)
--- NOTE | 2017-01-18 04:04 | RADRPT ---
EXAM DATE/TIME: 01/18/2017 03:53 [facility] COMPARISON: CHEST SINGLE AP, January 16, 2017, 1:27. INDICATIONS : Hypoglycemia. MEDICAL HISTORY : Hypertension. Cardiovascular disease. Diabetes mellitus type II. SURGICAL HISTORY : None. ENCOUNTER: Initial ACUITY: 1 day PAIN SCORE: 0/10 LOCATION: Bilateral chest FINDINGS: A single view of the chest demonstrates the lungs to be symmetrically aerated without evidence of mas s, infiltrate or effusion. The cardiomediastinal contours are unremarkable. Osseous structures are intact. CONCLUSION: Normal examination. Marcos Zuñiga MD on January 18, 2017 at 4:02 Board Certified Radiologist. This report was verified electronically.
[2017-01-18 05:00] VITALS: BP 178/92; PULSE 103; RESP 18; TEMP 98.5; O2SAT 99
--- NOTE | 2017-01-18 16:01 | EKG ---
Date Performed: 01/18/2017 Time Performed: 03:09:37 PTAGE: 81 years EKG: SINUS TACHYCARDIA NONSPECIFIC T-WAVE ABNORMALITY ABNORMAL RHYTHM ECG Since PREVIOUS TRACING 01/16/2017, no significant change. PREVIOUS TRACIN01/16/2017 00.36 DOCTOR: Zain Luong Interpretating Date/Time 01/18/2017 16:00:47
== END 2017-01-18 06:28 | disposition home or self-care (01) ==
LOC: NEPC 01:41
DX: E87.1 Hypo-osmolality and hyponatremia (principal); E11.65 Type 2 diabetes mellitus with hyperglycemia; R00.2 Palpitations; R94.31 Abnormal electrocardiogram [ECG] [EKG]; I10 Essential (primary) hypertension; E78.00 Pure hypercholesterolemia, unspecified; I25.2 Old myocardial infarction; Z79.4 Long term (current) use of insulin; Z79.82 Long term (current) use of aspirin; Z86.79 Personal history of other diseases of the circulatory system; Z87.39 Personal history of other diseases of the musculoskeletal system and connective tissue; Z87.19 Personal history of other diseases of the digestive system
CPT/HCPCS: 71010; 80053; 81001; 82550; 82552; 83735; 84484; 85025; 93005; 96374; 99285; J1815; J7040

== ENCOUNTER 2017-01-24 05:52 | Emergency (ER) | payer MEDICARE ==
[~2017-01-24] VITALS: Ht 157.5 cm; Wt 59.0 kg
[2017-01-24 05:57] VITALS: BP 194/100; PULSE 124; RESP 18; TEMP 97.8; O2SAT 100
[2017-01-24 06:09] VITALS: RESP 16; O2SAT 99
[2017-01-24 06:10] VITALS: BP_SYST 169; BP_SYST 173; BP_DIAS 82; BP_DIAS 85
[2017-01-24] MEDS ORDERED: SODIUM CHLORID 0.9% 500 ML INJ 500 ML IV ONE (06:15)
[2017-01-24] MEDS ORDERED: SODIUM CHLORIDE 0.9% FLUSH 10 ML FLUSH IVF PRN (06:15)
[2017-01-24] MEDS ORDERED: ASPIRIN 81 MG CHEW TAB PO ONE (06:15)
--- NOTE | 2017-01-24 06:19 | PD ---
HPI Chief Complaint: Cardiac Complaint Time Seen by Provider: 06:07 Travel History International Travel<30 days: No Contact w/Intl Traveler<30days: No Traveled to known affect area: No History of Present Illness HPI 81-year-old female presents to the emergency department by private transportation for feeling like her heart is racing. No chest pain or shortness of breath and no nausea or vomiting. Patient's had no recent febrile illness. Patient states that she felt well all day yesterday and then since this evening has had ongoing sensation of her heart racing. Patient is been seen a few times before in the emergency department for same complaint and has been told that she might have something more with her thyroid gland and that she should follow-up with her primary care provider. Patient states she has appointment with her primary care provider today at 2:30. Patient denies any prior thyroid disease. Patient is diabetic and states her blood sugars have been well-controlled. Patient also has history of COPD and uses an albuterol inhaler as well as history of hypertension and is prescribed amlodipine. Patient denies other concerns or complaints. Patient's had no syncope or near syncope. PFSH Past Medical History Hx Anticoagulant Therapy: Yes (ASA) Arthritis: Yes Heart Rhythm Problems: Yes Cardiac Catheterization: Yes (STENTS X3) Cardiovascular Problems: Yes (STENT x3 [place]) High Cholesterol: Yes Congestive Heart Failure: No Diabetes: Yes Patient Takes Glucophage: No Diminished Hearing: No Gastrointestinal Disorders: Yes Heparin Induced Thrombocytopen: No Hypertension: Yes Immunizations Current: Yes Myocardial Infarction: Yes ?: Not Menopausal: Yes : 7 Para: 7 Miscarriage: 0 : 0 Past Surgical History Coronary Artery Bypass Graft: No Gynecologic Surgery: Yes (HYSTERECTOMY) Hysterectomy: Yes Other Surgery: Yes Family History Family Myocardial Infarction: Yes (MOTHER) Social History Alcohol Use: No Tobacco Use: No Substance Use: No Allergies-Medications (Allergen,Severity, Reaction): Coded Allergies: No Known Allergies (Verified , 01/18/17) Reported Meds & Prescriptions Reported Meds & Active Scripts Active Breatherite MDI Space/Aerosol-Holding Chamber (Spacer/Breatherite MDI Aerosol- Holding Chamb) 1 Mis Mis 1 Ea .ROUTE DIRECTED Proventil Hfa 6.7 GM Inh (Albuterol Sulfate) 90 Mcg/Act Aer 2 Puff INH Q4-6H PRN Senna Plus 8.6-50 mg (Sennosides-Docusate Sodium) 1 Tab Tab 2 Tab PO BID PRN Reported Lisinopril-Hctz 20-12.5 Mg Tab 1 Tab PO DAILY Novolog Inj (Insulin Aspart) 1,000 Unit/10 Ml Vial 0 SQ ACHS SLIDING SCALE Sliding Scale as directed. Levemir Inj (Insulin Detemir) 1,000 unit/ 10 ML Vial 25 Units SQ HS Do not mix with any other Insulin. Protonix (Pantoprazole Sodium) 40 Mg Tab 40 Mg PO PRN PRN Amlodipine (Amlodipine Besylate) 5 Mg Tab 5 Mg PO BID Review of Systems Except as stated in HPI: all other systems reviewed are Neg Physical Exam Narrative GENERAL: Well-developed elderly female in no acute distress no respiratory distress SKIN: Warm and dry. HEAD: Normocephalic. EYES: No scleral icterus. No injection or drainage. NECK: Supple, trachea midline. No JVD or lymphadenopathy. CARDIOVASCULAR: Increased Regular rate and rhythm without murmurs, gallops, or rubs. RESPIRATORY: Breath sounds equal bilaterally. No accessory muscle use. GASTROINTESTINAL: Abdomen soft, non-tender, nondistended. MUSCULOSKELETAL: No cyanosis, or edema. BACK: Nontender without obvious deformity. No CVA tenderness. Data Data Last Documented VS Vital Signs Date Time Temp Pulse Resp B/P Pulse Ox O2 Delivery O2 Flow Rate FiO2 01/24/17 06:10 169/85 173/82 01/24/17 06:09 16 99 Room Air 01/24/17 05:57 97.8 124 Orders Electrocardiogram (01/24/17 06:07) Basic Metabolic Panel (Bmp) (01/24/17 06:07) Ckmb (Isoenzyme) Profile (01/24/17 06:07) Complete Blood Count With Diff (01/24/17 06:07) Magnesium (Mg) (01/24/17 06:07) Prothrombin Time / Inr (Pt) (01/24/17 06:07) Act Partial Throm Time (Ptt) (01/24/17 06:07) Troponin I (01/24/17 06:07) Chest, Single Ap (01/24/17 06:07) Ecg Monitoring (01/24/17 06:07) Bilateral Bp Monitoring (01/24/17 06:07) Iv Access Insert/Monitor (01/24/17 06:07) Oximetry (01/24/17 06:07) Oxygen Administration (01/24/17 06:07) Aspirin Chew (Aspirin Chew) (01/24/17 06:15) Sodium Chloride 0.9% Flush (Ns Flush) (01/24/17 06:15) Sodium Chlorid 0.9% 500 Ml Inj (Ns 500 M (01/24/17 06:15) Labs Laboratory Tests Test 01/24/17 06:15 White Blood Count 4.5 TH/MM3 Red Blood Count 4.85 MIL/MM3 Hemoglobin 13.6 GM/DL Hematocrit 40.0 % Mean Corpuscular Volume 82.6 FL Mean Corpuscular Hemoglobin 28.1 PG Mean Corpuscular Hemoglobin 34.0 % Concent Red Cell Distribution Width 13.1 % Platelet Count 180 TH/MM3 Mean Platelet Volume 8.8 FL Neutrophils (%) (Auto) 55.7 % Lymphocytes (%) (Auto) 35.3 % Monocytes (%) (Auto) 7.1 % Eosinophils (%) (Auto) 1.3 % Basophils (%) (Auto) 0.6 % Neutrophils # (Auto) 2.5 TH/MM3 Lymphocytes # (Auto) 1.6 TH/MM3 Monocytes # (Auto) 0.3 TH/MM3 Eosinophils # (Auto) 0.1 TH/MM3 Basophils # (Auto) 0.0 TH/MM3 CBC Comment DIFF FINAL Differential Comment Prothrombin Time 10.7 SEC Prothromb Time International 1.0 RATIO Ratio Activated Partial 25.0 SEC Thromboplast Time Sodium Level 132 MEQ/L Potassium Level 4.0 MEQ/L Chloride Level 95 MEQ/L Carbon Dioxide Level 29.9 MEQ/L Anion Gap 7 MEQ/L Blood Urea Nitrogen 16 MG/DL Creatinine 0.79 MG/DL Estimat Glomerular Filtration 85 ML/MIN Rate Random Glucose 344 MG/DL Calcium Level 9.6 MG/DL Magnesium Level 1.9 MG/DL [facility] Medical Decision Making Medical Screen Exam Complete: Yes Emergency Medical Condition: Yes Medical Record Reviewed: Yes Interpretation(s) EKG sinus tachycardia rate [address] elevation or injury pattern changes noted cxr: nad Differential Diagnosis Palpitations, ACS, myocardial infarction, electrolyte disturbance, thyroid dysfunction, arrhythmia, dehydration, anemia, sepsis, UTI Narrative Course IV access obtained specimens collected and sent for resulting EKG consistent with sinus tachycardia. Care signed over to oncoming physician Dr. Foley for follow-up of pending labs and patient disposition Sepsis Criteria SIRS Criteria (2 or more): Heart rate over 90 Yarelis Canseco MD Jan 24, 2017 06:19
--- NOTE | 2017-01-24 06:41 | RADRPT ---
EXAM DATE/TIME: 01/24/2017 06:24 [facility] COMPARISON: CHEST SINGLE AP, January 18, 2017, 3:53. INDICATIONS : Pt having chest pain and feeling like she was going to pass out x 1 day. MEDICAL HISTORY : Hypertension. Cardiovascular disease. Diabetes mellitus type II. SURGICAL HISTORY : None. ENCOUNTER: Initial ACUITY: 2 days PAIN SCORE: 7/10 LOCATION: Bilateral chest FINDINGS: A single view of the chest demonstrates the lungs to be symmetrically aerated without evidence of mas s, infiltrate or effusion. The cardiomediastinal contours are unremarkable. Osseous structures are intact. CONCLUSION: 1. No acute cardiopulmonary disease. Hardik Cortez MD on January 24, 2017 at 6:39 Board Certified Radiologist. This report was verified electronically.
[2017-01-24 06:54] LABS: AUTOMATED NEUTROPHIL # 2.5 TH/MM3 (1.8-7.7); BASOPHIL % 0.6 % (0.0-2.0); EOSINOPHIL # 0.1 TH/MM3 (0-0.4); EOSINOPHIL % 1.3 % (0.0-4.0); HEMO FLAGS DIFF FINAL; LYMPH % 35.3 % (9.0-44.0); LYMPHOCYTE # 1.6 TH/MM3 (1.0-4.8); MEAN CELL VOLUME 82.6 FL (80.0-100.0); MEAN CORPUSCULAR HEMOGLOBIN 28.1 PG (27.0-34.0); MONO % 7.1 % (0.0-8.0); NEUT % 55.7 % (16.0-70.0); PLATELET COUNT 180 TH/MM3 (150-450); RED BLOOD COUNT 4.85 MIL/MM3 (4.00-5.30); RED CELL DISTRIBUTION WIDTH 13.1 % (11.6-17.2); WHITE BLOOD COUNT 4.5 TH/MM3 (4.0-11.0)
[2017-01-24 07:00] LABS: PROTHROMBIN TIME - PATIENT 10.7 SEC (9.8-11.6)
[2017-01-24 07:01] LABS: ANION GAP 7 MEQ/L (5-15); BICARBONATE 29.9 MEQ/L (21.0-32.0); BLOOD UREA NITROGEN 16 MG/DL (7-18); CHLORIDE 95 MEQ/L (98-107); GLOMERULAR FILTRATION RATE 85 ML/MIN (>89); MAGNESIUM 1.9 MG/DL (1.5-2.5); SODIUM (NA) 132 MEQ/L (136-145)
[2017-01-24 07:07] LABS: CREATINE KINASE 65 U/L (26-192)
[2017-01-24] MEDS ORDERED: METOPROLOL TARTRATE 50 MG TAB PO ONE (07:30)
[2017-01-24 07:42] VITALS: BP 157/74; PULSE 110; RESP 23; O2SAT 100
--- NOTE | 2017-01-24 07:45 | PD ---
Data Data Last Documented VS Vital Signs Date Time Temp Pulse Resp B/P Pulse Ox O2 Delivery O2 Flow Rate FiO2 01/24/17 07:42 110 23 157/74 100 Room Air 01/24/17 05:57 97.8 Orders Electrocardiogram (01/24/17 06:07) Basic Metabolic Panel (Bmp) (01/24/17 06:07) Ckmb (Isoenzyme) Profile (01/24/17 06:07) Complete Blood Count With Diff (01/24/17 06:07) Magnesium (Mg) (01/24/17 06:07) Prothrombin Time / Inr (Pt) (01/24/17 06:07) Act Partial Throm Time (Ptt) (01/24/17 06:07) Troponin I (01/24/17 06:07) Chest, Single Ap (01/24/17 06:07) Ecg Monitoring (01/24/17 06:07) Bilateral Bp Monitoring (01/24/17 06:07) Iv Access Insert/Monitor (01/24/17 06:07) Oximetry (01/24/17 06:07) Oxygen Administration (01/24/17 06:07) Aspirin Chew (Aspirin Chew) (01/24/17 06:15) Sodium Chloride 0.9% Flush (Ns Flush) (01/24/17 06:15) Sodium Chlorid 0.9% 500 Ml Inj (Ns 500 M (01/24/17 06:15) Metoprolol Tartrate (Lopressor) (01/24/17 07:30) Labs Laboratory Tests Test 01/24/17 06:15 White Blood Count 4.5 TH/MM3 Red Blood Count 4.85 MIL/MM3 Hemoglobin 13.6 GM/DL Hematocrit 40.0 % Mean Corpuscular Volume 82.6 FL Mean Corpuscular Hemoglobin 28.1 PG Mean Corpuscular Hemoglobin 34.0 % Concent Red Cell Distribution Width 13.1 % Platelet Count 180 TH/MM3 Mean Platelet Volume 8.8 FL Neutrophils (%) (Auto) 55.7 % Lymphocytes (%) (Auto) 35.3 % Monocytes (%) (Auto) 7.1 % Eosinophils (%) (Auto) 1.3 % Basophils (%) (Auto) 0.6 % Neutrophils # (Auto) 2.5 TH/MM3 Lymphocytes # (Auto) 1.6 TH/MM3 Monocytes # (Auto) 0.3 TH/MM3 Eosinophils # (Auto) 0.1 TH/MM3 Basophils # (Auto) 0.0 TH/MM3 CBC Comment DIFF FINAL Differential Comment Prothrombin Time 10.7 SEC Prothromb Time International 1.0 RATIO Ratio Activated Partial 25.0 SEC Thromboplast Time Sodium Level 132 MEQ/L Potassium Level 4.0 MEQ/L Chloride Level 95 MEQ/L Carbon Dioxide Level 29.9 MEQ/L Anion Gap 7 MEQ/L Blood Urea Nitrogen 16 MG/DL Creatinine 0.79 MG/DL Estimat Glomerular Filtration 85 ML/MIN Rate Random Glucose 344 MG/DL Calcium Level 9.6 MG/DL Magnesium Level 1.9 MG/DL Total Creatine Kinase 65 U/L Troponin I LESS THAN 0.02 NG/ML MDM Supervised Visit with MILIND: No Narrative Course Case checked out to me by Dr. Canseco at 7 AM. I have examined spoke with the patient. She is feeling improved. She had a sinus tachycardia on arrival but now her heart rate is [address] Canseco wanted me to give her an oral beta jelena dose I gave her 50 mg by mouth Lopressor Blood pressure 157 systolic at this time I reviewed her labs which are essentially normal I reviewed her chest x-ray which is normal Suspicion here was hyperthyroid involvement as the last 2 time she's had very suppressed TSH Conveniently she has an appointment with her primary physician today 2:30 which she says she will make Stable for outpatient follow-up Diagnosis Primary Impression: Palpitations Additional Impression: Sinus tachycardia Additional Instruction: The patient was advised to follow up with their physician and return if they worsen. Med/Other Pt SpecificInfo: Other Disposition: 01 DISCHARGE HOME Condition: Stable Demond Foley MD Jan 24, 2017 07:45
--- NOTE | 2017-01-24 12:20 | EKG ---
Date Performed: 01/24/2017 Time Performed: 06:02:45 PTAGE: 81 years EKG: SINUS TACHYCARDIA NONSPECIFIC T-WAVE ABNORMALITY ABNORMAL RHYTHM ECG Compared to prior trac ing no significant change PREVIOUS TRACING : 01/18/2017 03.09 DOCTOR: Esteban Ramesh Interpretating Date/Time 01/24/2017 12:18:43
== END 2017-01-24 08:16 | disposition home or self-care (01) ==
LOC: NEPC 05:52
DX: R00.0 Tachycardia, unspecified (principal); E11.9 Type 2 diabetes mellitus without complications; I10 Essential (primary) hypertension; I25.2 Old myocardial infarction; Z79.4 Long term (current) use of insulin
CPT/HCPCS: 71010; 80048; 82550; 83735; 84484; 85025; 85610; 85730; 93005; 96360; 99285; J7040

== ENCOUNTER 2017-01-29 04:22 | Observation (INO) | payer MEDICARE ==
[~2017-01-29] VITALS: Ht 152.4 cm; Wt 55.0 kg
[2017-01-29 04:26] VITALS: BP 221/100; PULSE 111; RESP 16; TEMP 98.3; O2SAT 98
[2017-01-29 04:32] VITALS: BP 147/80; PULSE 97; RESP 20; O2SAT 100
[2017-01-29 05:04] LABS: AUTOMATED NEUTROPHIL # 2.6 TH/MM3 (1.8-7.7); BASOPHIL % 0.5 % (0.0-2.0); EOSINOPHIL # 0.2 TH/MM3 (0-0.4); HEMATOCRIT 36.3 % (35.0-46.0); HEMO FLAGS DIFF FINAL; LYMPH % 40.5 % (9.0-44.0); LYMPHOCYTE # 2.2 TH/MM3 (1.0-4.8); MEAN CORPUSCULAR HEMOGLOBIN 27.8 PG (27.0-34.0); MEAN CORPUSCULAR HGB CONC 33.5 % (32.0-36.0); MONO % 7.2 % (0.0-8.0); NEUT % 48.8 % (16.0-70.0); PLATELET COUNT 169 TH/MM3 (150-450); RED BLOOD COUNT 4.38 MIL/MM3 (4.00-5.30); RED CELL DISTRIBUTION WIDTH 13.4 % (11.6-17.2); WHITE BLOOD COUNT 5.3 TH/MM3 (4.0-11.0)
--- NOTE | 2017-01-29 05:05 | PD ---
HPI Chief Complaint: Chest Pain Time Seen by Provider: 04:32 Travel History International Travel<30 days: No Contact w/Intl Traveler<30days: No Traveled to known affect area: No History of Present Illness HPI The patient is an 81 year old female who presents to the [facility] emergency department with a history of chest pain that she reports awoke her from sound sleep prior to arrival. The patient denies having chest pain in the past. She reports that she does however have a history of coronary artery disease with 3 prior stents placed. The patient reports that she does frequently have palpitations. She was recently seen in the emergency department earlier in the month with complaints of palpitations. She cannot recall when she last had a stress test done, however she reports that it was over 2 years ago. The patient reports that the pain at one point was a 9 out of 10 in severity. At my arrival to the room, the patient reports that the chest pain is resolved. She denies having any shortness of breath, nausea, or sweating with the pain. She reports that the pain was a sharp sensation in the left side of her chest. She denies any known alleviating or aggravating factors. The patient denies any recent fevers, cough, congestion, neck pain, abdominal pain, vomiting, diarrhea, urinary symptoms, or neurologic symptoms. PFSH Past Medical History Narrative Medical The patient's past medical history is significant for hypertension, hyperlipidemia, diabetes mellitus, coronary artery disease, irregular heartbeat with palpitations Hx Anticoagulant Therapy: Yes (ASA) Arthritis: Yes Heart Rhythm Problems: Yes Cardiac Catheterization: Yes (STENTS X3) Cardiovascular Problems: Yes (STENT x3 [place]) High Cholesterol: Yes Congestive Heart Failure: No Diabetes: Yes Patient Takes Glucophage: No Diminished Hearing: No Gastrointestinal Disorders: Yes Heparin Induced Thrombocytopen: No Hypertension: Yes Immunizations Current: Yes Myocardial Infarction: Yes Tetanus Vaccination: Unknown Influenza Vaccination: Yes Menopausal: Yes : 7 Para: 7 Miscarriage: 0 : 0 Past Surgical History Narrative Surgical The patient's past surgical history is significant for 3 prior cardiac stents being placed and a hysterectomy. Coronary Artery Bypass Graft: No Gynecologic Surgery: Yes (HYSTERECTOMY) Hysterectomy: Yes Other Surgery: Yes Family History Family Myocardial Infarction: Yes (MOTHER) Social History Alcohol Use: No Tobacco Use: No Substance Use: No Allergies-Medications (Allergen,Severity, Reaction): Coded Allergies: No Known Allergies (Verified , 01/29/17) Reported Meds & Prescriptions Reported Meds & Active Scripts Active Breatherite MDI Space/Aerosol-Holding Chamber (Spacer/Breatherite MDI Aerosol- Holding Chamb) 1 Mis Mis 1 Ea .ROUTE DIRECTED Proventil Hfa 6.7 GM Inh (Albuterol Sulfate) 90 Mcg/Act Aer 2 Puff INH Q4-6H PRN Senna Plus 8.6-50 mg (Sennosides-Docusate Sodium) 1 Tab Tab 2 Tab PO BID PRN Reported Lisinopril-Hctz 20-12.5 Mg Tab 1 Tab PO DAILY Novolog Inj (Insulin Aspart) 1,000 Unit/10 Ml Vial 0 SQ ACHS SLIDING SCALE Sliding Scale as directed. Levemir Inj (Insulin Detemir) 1,000 unit/ 10 ML Vial 25 Units SQ HS Do not mix with any other Insulin. Protonix (Pantoprazole Sodium) 40 Mg Tab 40 Mg PO PRN PRN Amlodipine (Amlodipine Besylate) 5 Mg Tab 5 Mg PO BID Review of Systems General / Constitutional: No: Fever Eyes: No: Visual changes HENT: No: Headaches Cardiovascular: Positive: Chest Pain or Discomfort, Palpitations Respiratory: No: Shortness of Breath Gastrointestinal: No: Abdominal Pain Genitourinary: No: Dysuria Musculoskeletal: No: Pain Skin: No Rash Neurologic: No: Weakness Psychiatric: No: Depression Endocrine: No: Polydipsia Hematologic/Lymphatic: No: Easy Bruising Physical Exam Narrative General: The patient is [-]. Head and Neck exam: Head is normocephalic atraumatic. Eyes: EOMI, pupils are equal round and reactive to light. Nose: Midline septum with pink mucous membranes Mouth: Dentition unremarkable. Moist mucus membranes. Posterior oropharynx is not erythematous. No tonsillar hypertrophy. Uvula midline. Airway patent. Neck: No palpable lymphadenopathy. No nuchal rigidity. No thyromegaly. Cardiovascular: Regular rate and rhythm without murmurs, gallops, or rubs. No pulse deficit to the extremities. Lungs: Clear to auscultation bilaterally. No wheezes, rhonchi, or rales. Abdomen: Soft, without tenderness to palpation in all 4 quadrants of the abdomen. No guarding, rebound, or rigidity. Negative [address] [place] sign. Extremities: No clubbing, cyanosis, or edema. 2+ pulses in all 4 extremities. Back: No spinous process tenderness to palpation. No costovertebral angle tenderness to palpation. Neurologic Exam: Cranial nerves 2-12 were intact on exam. Strength is 5/5 in all 4 extremities. No sensory deficits noted. No dysdiadochokinesis. Good finger to nose and Heel to guajardo bilaterally. Skin Exam: No rash noted. Intact skin that is warm and dry. Data Data Last Documented VS Vital Signs Date Time Temp Pulse Resp B/P Pulse Ox O2 Delivery O2 Flow Rate FiO2 01/29/17 06:00 97.0 70 16 142/66 Room Air 01/29/17 04:32 100 Orders Electrocardiogram (01/29/17 04:49) Complete Blood Count With Diff (01/29/17 04:49) Comprehensive Metabolic Panel (01/29/17 04:49) Creatine Kinase (Cpk) (01/29/17 04:49) Ckmb (Isoenzyme) Profile (01/29/17 04:49) Troponin I (01/29/17 04:49) Prothrombin Time / Inr (Pt) (01/29/17 04:49) Act Partial Throm Time (Ptt) (01/29/17 04:49) Lipase (01/29/17 04:49) Magnesium (Mg) (01/29/17 04:49) Thyroid Stimulating Hormone (01/29/17 04:49) Chest, Single Ap (01/29/17 04:49) Iv Access Insert/Monitor (01/29/17 04:49) Ecg Monitoring (01/29/17 04:49) Oximetry (01/29/17 04:49) Aspirin Chew (Aspirin Chew) (01/29/17 05:15) Nitroglycerin 2% Oint (Nitroglycerin 2% (01/29/17 05:15) Sodium Chlor 0.9% 250 Ml Inj (Ns 250 Ml (01/29/17 05:15) Free T3 (01/29/17 06:22) Free Thyroxine (T4) (01/29/17 06:22) Labs Laboratory Tests Test 01/29/17 04:50 White Blood Count 5.3 TH/MM3 Red Blood Count 4.38 MIL/MM3 Hemoglobin 12.2 GM/DL Hematocrit 36.3 % Mean Corpuscular Volume 83.0 FL Mean Corpuscular Hemoglobin 27.8 PG Mean Corpuscular Hemoglobin 33.5 % Concent Red Cell Distribution Width 13.4 % Platelet Count 169 TH/MM3 Mean Platelet Volume 8.3 FL Neutrophils (%) (Auto) 48.8 % Lymphocytes (%) (Auto) 40.5 % Monocytes (%) (Auto) 7.2 % Eosinophils (%) (Auto) 3.0 % Basophils (%) (Auto) 0.5 % Neutrophils # (Auto) 2.6 TH/MM3 Lymphocytes # (Auto) 2.2 TH/MM3 Monocytes # (Auto) 0.4 TH/MM3 Eosinophils # (Auto) 0.2 TH/MM3 Basophils # (Auto) 0.0 TH/MM3 CBC Comment DIFF FINAL Differential Comment Prothrombin Time 10.7 SEC Prothromb Time International 1.0 RATIO Ratio Activated Partial 24.3 SEC Thromboplast Time Sodium Level 137 MEQ/L Potassium Level 3.8 MEQ/L Chloride Level 100 MEQ/L Carbon Dioxide Level 28.5 MEQ/L Anion Gap 9 MEQ/L Blood Urea Nitrogen 15 MG/DL Creatinine 0.78 MG/DL Estimat Glomerular Filtration 86 ML/MIN Rate Random Glucose 242 MG/DL Calcium Level 9.4 MG/DL Magnesium Level 2.0 MG/DL Total Bilirubin 0.3 MG/DL Aspartate Amino Transf 17 U/L (AST/SGOT) Alanine Aminotransferase 21 U/L (ALT/SGPT) Alkaline Phosphatase 141 U/L Total Creatine Kinase 81 U/L Troponin I LESS THAN 0.02 NG/ML Total Protein 8.1 GM/DL Albumin 3.6 GM/DL Lipase 145 U/L Thyroid Stimulating Hormone LESS THAN 3rd Gen 0.005 uIU/ML MDM Medical Decision Making Medical Screen Exam Complete: Yes Emergency Medical Condition: Yes Interpretation(s) Last Impressions Chest X-Ray 01/29/17 0449 Signed Impressions: Service Date/Time: Sunday, January 29, 2017 05:11 - CONCLUSION: Normal examination. Marcos Zuñiga MD Differential Diagnosis Acute coronary syndrome, versus acid reflux, versus pancreatitis, versus anxiety disorder, versus pneumothorax, versus pneumonia Narrative Course During the course of the patients emergency department visit, the patients history, examination, and differential diagnosis were reviewed with the patient. The patient had IV access obtained and blood work sent for analysis. The patient was placed on a clinical research monitor with oximetry and blood pressure monitoring. An EKG was done on arrival. The patient's EKG shows a sinus rhythm heart rate of 96, QRS duration of 77 ms, QTC 388 ms, no acute ST segment elevation or depression. The patient was initially provided aspirin 162 mg by mouth 1. Nitroglycerin 1 inch the chest wall. The patient was given normal saline a 250 bolus 1. The patients laboratory studies were reviewed and remarkable for a CBC that is within normal limits. CMP shows a glucose of 242, alkaline phosphatase 141, CPK 81, troponin I less than 0.02, lipase 145, TSH is less than 0.005. Electronic medical record was reviewed regarding this. The patient has been told several times in the past that her TSH is abnormal and she needs to follow up with her primary care physician. The patient is unsure whether she has discussed this with her primary care physician. The patient's PT is 10.7, INR 1.0, PTT 24.3. Radiology studies were reviewed and remarkable for a chest x-ray that shows no acute abnormality. The patient will be admitted to the chest pain center for rule out serial cardiac enzyme protocol and consideration of stress testing to follow-up as she reports that she has not had stress testing in the last couple of years. Regarding the patient's TSH, free T3-T4 has been ordered to further evaluate as this has not been done previously. The patients results were discussed with the patient, including the plan of care. I explained that further testing and/ or monitoring is indicated based on the patients history, examination, and/ or laboratory findings. Therefore, I recommended admission for additional evaluation. The patient expressed understanding and was agreeable with this plan. The patient was admitted to the hospital in stable condition and sent to a bed under the care of chest pain center. Diagnosis Primary Impression: Chest pain, rule out acute myocardial infarction Additional Impression: Low TSH level Admitting Information Admitting Physician Requests: Carina Dos Santos MD Jan 29, 2017 05:05
[2017-01-29] MEDS ORDERED: ASPIRIN 81 MG CHEW TAB CHEW ONE (05:15)
[2017-01-29] MEDS ORDERED: SODIUM CHLOR 0.9% 250 ML INJ 250 ML IV ONE (05:15)
[2017-01-29] MEDS ORDERED: NITROGLYCERIN 2% OINT 1 GM PACKET TOPICAL ONE (05:15)
[2017-01-29 05:16] LABS: APTT (PATIENT) 24.3 SEC (24.3-30.1); PROTHROMBIN TIME - PATIENT 10.7 SEC (9.8-11.6)
[2017-01-29 05:23] LABS: ALT (GPT) 21 U/L (10-53); ANION GAP 9 MEQ/L (5-15); AST (GOT) 17 U/L (15-37); BICARBONATE 28.5 MEQ/L (21.0-32.0); BLOOD UREA NITROGEN 15 MG/DL (7-18); CHLORIDE 100 MEQ/L (98-107); GLOMERULAR FILTRATION RATE 86 ML/MIN (>89); POTASSIUM 3.8 MEQ/L (3.5-5.1); SODIUM (NA) 137 MEQ/L (136-145)
[2017-01-29 05:33] LABS: ALKALINE PHOSPHATASE 141 U/L (45-117); TOTAL BILIRUBIN ADULT 0.3 MG/DL (0.2-1.0)
[2017-01-29 05:36] LABS: CREATINE KINASE 81 U/L (26-192)
--- NOTE | 2017-01-29 05:54 | RADRPT ---
EXAM DATE/TIME: 01/29/2017 05:11 [facility] COMPARISON: CHEST SINGLE AP, January 24, 2017, 6:24. CHEST SINGLE AP, January 18, 2017, 3:53. INDICATIONS : Chest pain. MEDICAL HISTORY : Hypertension. Cardiovascular disease. Diabetes mellitus type II. SURGICAL HISTORY : None. ENCOUNTER: Initial ACUITY: 1 day PAIN SCORE: 0/10 LOCATION: Bilateral chest FINDINGS: A single view of the chest demonstrates the lungs to be symmetrically aerated without evidence of mas s, infiltrate or effusion. The cardiomediastinal contours are unremarkable. Osseous structures are intact. CONCLUSION: Normal examination. Marcos Zuñiga MD on January 29, 2017 at 5:53 Board Certified Radiologist. This report was verified electronically.
[2017-01-29 06:00] VITALS: BP 142/66; PULSE 70; RESP 16; TEMP 97
[2017-01-29] MEDS ORDERED: NITROGLYCERIN 0.4 MG SL 25 TABS/BTL SL PRN (06:30)
[2017-01-29] MEDS ORDERED: ACETAMINOPHEN 500 MG CPLT PO PRN (06:30)
[2017-01-29] MEDS ORDERED: SODIUM CHLORIDE 0.9% FLUSH 10 ML FLUSH IV FLUSH PRN (06:30)
[2017-01-29 06:36] VITALS: O2SAT 98
[2017-01-29 07:23] VITALS: BP 125/59; PULSE 65; RESP 15; TEMP 98; O2SAT 97
[2017-01-29 08:35] LABS: CREATINE KINASE 73 U/L (26-192)
[2017-01-29 08:42] LABS: FREE T3 3.45 PG/ML (2.18-3.98); FREE T4 1.31 NG/DL (0.76-1.46)
[2017-01-29] MEDS ORDERED: SODIUM CHLORIDE 0.9% FLUSH 10 ML FLUSH IV FLUSH SCH (09:00)
[2017-01-29] MEDS ORDERED: DEXTROSE 50% IN WATER 50 ML VIAL(D50) IV PRN (09:45)
[2017-01-29] MEDS ORDERED: PANTOPRAZOLE SOD 40 MG DELAYED RELEASE TAB PO SCH (09:45)
[2017-01-29] MEDS ORDERED: amLODIPine BESYLATE 5 MG TAB PO SCH (09:45)
[2017-01-29] MEDS ORDERED: GLUCAGON 1 MG/ML VIAL IM/SQ PRN (09:45)
[2017-01-29] MEDS ORDERED: RESP: ALBUTEROL 2.5 MG/IPRATROPIUM 0.5 MG NEB (PRN) INH (09:45)
--- NOTE | 2017-01-29 10:10 | HHI.HP ---
HPI Primary Care Physician Unknown Chief Complaint Chest pain History of Present Illness This is an 81-year-old female that presents to ED with a complaint of a left- sided chest discomfort also radiated to the right. Began this morning. She really cannot describe how long it lasted. She also felt as though she had palpitations. She cannot describe her palpitations however. She cannot recall being nauseous or diaphoretic. Denies shortness of breath. She also states she 's having some abdominal pain. Denies diarrhea constipation or blood in stool. States she has heart disease and has stents. She follows Dr. Campbell. She cannot remember the last time she saw him but thinks it was less than a year. Cannot recall last stress testing. Review of Systems General: Patient denies fevers, chills recent, and recent travel HEENT: Patient denies headache, sore throat, difficulty swallowing. Cardiovascular: Has the chest discomfort as mentioned above. Complains of palpitations but cannot describe them. No syncope. Denies diaphoresis. Respiratory: Denies shortness of breath or inspirational chest discomfort. Denies coughing wheezing or hemoptysis. GI: Patient denies nausea, vomiting, diarrhea, abdominal pain, bloody stools. Musculoskeletal: Patient denies joint pain or edema. Denies calf pain or edema. Neurovascular: Patient denies numbness, tingling, weakness in extremities. Denies headache. Endocrine: Denies polyuria and polydipsia. Hematologic: Denies easy bruising. Skin: Denies rash or itching. Past Family Social History Allergies: Coded Allergies: No Known Allergies (Verified , 01/29/17) Past Medical History Stated history of CAD with stents. Diabetes, hypertension, hyperlipidemia. Past Surgical History Stated history of cardiac catheterization with stenting. Hysterectomy. Reported Medications Reported Meds & Active Scripts Active Breatherite MDI Space/Aerosol-Holding Chamber (Spacer/Breatherite MDI Aerosol- Holding Chamb) 1 Mis Mis 1 Ea .ROUTE DIRECTED Proventil Hfa 6.7 GM Inh (Albuterol Sulfate) 90 Mcg/Act Aer 2 Puff INH Q4-6H PRN Senna Plus 8.6-50 mg (Sennosides-Docusate Sodium) 1 Tab Tab 2 Tab PO BID PRN Reported Lisinopril-Hctz 20-12.5 Mg Tab 1 Tab PO DAILY Novolog Inj (Insulin Aspart) 1,000 Unit/10 Ml Vial 0 SQ ACHS SLIDING SCALE Sliding Scale as directed. Levemir Inj (Insulin Detemir) 1,000 unit/ 10 ML Vial 25 Units SQ HS Do not mix with any other Insulin. Protonix (Pantoprazole Sodium) 40 Mg Tab 40 Mg PO PRN PRN Amlodipine (Amlodipine Besylate) 5 Mg Tab 5 Mg PO BID Active Ordered Medications Current Medications Medications (Trade) Dose Ordered Sig/Ana Route Start Time Stop Time Status Last Admin (NS Flush) 2 ml UNSCH PRN IV FLUSH 01/29/17 06:30 (NS Flush) 2 ml BID IV FLUSH 01/29/17 09:00 (Tylenol) 500 mg Q4H PRN PO 01/29/17 06:30 (Nitrostat Sl) 0.4 mg Q5M PRN SL 01/29/17 06:30 (Norvasc) 5 mg BID PO 01/29/17 09:45 (Protonix) 40 mg DAILY PO 01/29/17 09:45 (D50w (Vial) Inj) 25 ml UNSCH PRN IV 01/29/17 09:45 (Glucagon Inj) 1 mg UNSCH PRN IM/SQ 01/29/17 09:45 Family History Not recall family history of CAD. Social History Denies tobacco abuse. Denies alcohol or illicit drug use. Physical Exam Vital Signs Vital Signs Date Time Temp Pulse Resp B/P Pulse Ox O2 Delivery O2 Flow Rate FiO2 01/29/17 07:23 98.0 65 15 125/59 97 Room Air 01/29/17 06:36 98 01/29/17 06:00 97.0 70 16 142/66 Room Air 01/29/17 04:32 97 20 147/80 100 01/29/17 04:26 98.3 111 16 221/100 98 Physical Exam GENERAL: This is a well-nourished, well-developed patient, in no apparent distress. Patient speaks in clear complete sentences. Patient is pleasant. HEENT: Head is atraumatic and normocephalic. Neck is supple without lymphadenopathy and trachea is midline. No JVD or carotid bruits. CARDIOVASCULAR: Regular rate and rhythm without murmurs, gallops, or rubs. RESPIRATORY: Clear to auscultation. Breath sounds equal bilaterally. No wheezes , rales, or rhonchi. Chest wall is nontender. No use of accessory muscles. GASTROINTESTINAL: Abdomen is nontender, nondistended. Abdomen soft. No obvious pulsatile mass or bruit. No CVA tenderness. Strong femoral pulses bilaterally. Normal bowel sounds in all quadrants. MUSCULOSKELETAL: Patient is moving upper and lower extremities freely. No calf tenderness or edema, no Homans sign. Strong pulses in upper and lower extremities. NEUROLOGICAL: Patient is alert and oriented. Cranial nerves 2-12 are grossly intact. No focal deficits and speech is clear. SKIN: No rash and turgor is normal. Laboratory Laboratory Tests Test 01/29/17 01/29/17 04:50 07:35 White Blood Count 5.3 Red Blood Count 4.38 Hemoglobin 12.2 Hematocrit 36.3 Mean Corpuscular Volume 83.0 Mean Corpuscular Hemoglobin 27.8 Mean Corpuscular Hemoglobin 33.5 Concent Red Cell Distribution Width 13.4 Platelet Count 169 Mean Platelet Volume 8.3 Neutrophils (%) (Auto) 48.8 Lymphocytes (%) (Auto) 40.5 Monocytes (%) (Auto) 7.2 Eosinophils (%) (Auto) 3.0 Basophils (%) (Auto) 0.5 Neutrophils # (Auto) 2.6 Lymphocytes # (Auto) 2.2 Monocytes # (Auto) 0.4 Eosinophils # (Auto) 0.2 Basophils # (Auto) 0.0 CBC Comment DIFF FINAL Differential Comment Prothrombin Time 10.7 Prothromb Time International 1.0 Ratio Activated Partial 24.3 Thromboplast Time Sodium Level 137 Potassium Level 3.8 Chloride Level 100 Carbon Dioxide Level 28.5 Anion Gap 9 Blood Urea Nitrogen 15 Creatinine 0.78 Estimat Glomerular Filtration 86 Rate Random Glucose 242 Calcium Level 9.4 Magnesium Level 2.0 Total Bilirubin 0.3 Aspartate Amino Transf 17 (AST/SGOT) Alanine Aminotransferase 21 (ALT/SGPT) Alkaline Phosphatase 141 Total Creatine Kinase 81 73 Troponin I LESS THAN 0.02 LESS THAN 0.02 Total Protein 8.1 Albumin 3.6 Lipase 145 Thyroid Stimulating Hormone LESS THAN 3rd Gen 0.005 Free Thyroxine 1.31 Free Triiodothyronine (T3) 3.45 pg/dL Result Diagram: 01/29/17 0450 01/29/17 045 Imaging Last 48 hours Impressions Chest X-Ray 01/29/17 2557 Signed Impressions: Service Date/Time: Sunday, January 29, 2017 05:11 - CONCLUSION: Normal examination. Marcos Zuñiga MD Course First 2 EKGs have sinus rhythm without significant ST segment depressions or elevations. Assessment and Plan Assessment and Plan * Chest pain: Patient's first 2 sets of EKGs and enzymes are okay. She has been seen by Dr. Stockton cardiology in the chest pain center. Also discussed the patient with her bilingual interpreter Dr. Campbell. He has reviewed her records. Her last stent was of the RCA in 2011. He states that she had a recent stress test looked good in his office. He states that she may go home and he will be glad to see her tomorrow in his office. * CAD: Continue follow-up with Dr. Campbell. * Hypertension: Continue current medication. * Diabetes: Continue current medications. She should follow diabetic diet. * Hyperlipidemia: Continue current medication. * Thyroid disorder: Patient's thyroid levels are abnormal. She will need to discuss this with her primary care physician. Patient is stable at this time. She is agreeable to this plan. Bereket Mcmillan Jan 29, 2017 10:10
--- NOTE | 2017-01-29 10:12 | HHI.DCPOC ---
Discharge Care Plan Diagnosis: (1) Chest pain (2) Coronary artery disease (3) History of coronary artery stent placement (4) Hypertension (5) Hyperglycemia (6) Diabetes mellitus (7) Thyroid disorder Goals to Promote Your Health * To prevent worsening of your condition and complications * To maintain your health at the optimal level Directions to Meet Your Goals Take your medications as prescribed Follow your dietary instruction Follow activity as directed Keep your appointments as scheduled Take your immunizations and boosters as scheduled If your symptoms worsen call your PCP, if no PCP go to Urgent Care Center or Emergency Room Smoking is Dangerous to Your Health. Avoid second hand smoke Call the 24-hour hour crisis hotline for domestic abuse at Bereket Mcmillan Jan 29, 2017 10:12
[2017-01-29 10:15] VITALS: PULSE 78
[2017-01-29] MEDS ORDERED: INSULIN ASPART SUPPLEMENTAL SCALE SQ SCH (11:00)
--- NOTE | 2017-01-29 15:53 | EKG ---
Date Performed: 01/29/2017 Time Performed: 07:46:35 PTAGE: 81 years EKG: Sinus rhythm NONSPECIFIC T-WAVE ABNORMALITY ABNORMAL ECG PREVIOUS TRACING : 01/29/2017 04.37 Compared to the previous tracing, rate has decreased DOCTOR: Corey Ca Interpretating Date/Time 01/29/2017 15:50:53
--- NOTE | 2017-01-29 16:03 | EKG ---
Date Performed: 01/29/2017 Time Performed: 04:37:00 PTAGE: 81 years EKG: Sinus rhythm WITH FIRST DEGREE AV BLOCK ABNORMAL ECG PREVIOUS TRACING : 01/24/2017 06.02 Compared to prior tracing no significant change DOCTOR: Corey Ca Interpretating Date/Time 01/29/2017 16:02:51
== END 2017-01-29 11:19 | disposition home or self-care (01) ==
LOC: NEPE 04:22 → NEDA 06:30 → NEPHCDU 08:03
PROVIDERS: ADMIT Internal Medicine Interventional Cardiology; ATTEND Internal Medicine Interventional Cardiology
DX: R07.89 Other chest pain (principal); R00.2 Palpitations; I25.10 Atherosclerotic heart disease of native coronary artery without angina pectoris; I10 Essential (primary) hypertension; E78.5 Hyperlipidemia, unspecified; E11.9 Type 2 diabetes mellitus without complications; E78.00 Pure hypercholesterolemia, unspecified; E07.9 Disorder of thyroid, unspecified; Z79.4 Long term (current) use of insulin; Z95.5 Presence of coronary angioplasty implant and graft
CPT/HCPCS: 71010; 80053; 82550; 82948; 83690; 83735; 84439; 84443; 84481; 84484; 85025; 85610; 85730; 93005; 96360; 99285; G0378; J7050

== ENCOUNTER → 2017-03-03 | Outpatient (CLI) | payer MEDICARE ==
[2017-03-03 12:49] LABS: BICARBONATE 28.7 MEQ/L (21.0-32.0); POTASSIUM 4.2 MEQ/L (3.5-5.1)
[2017-03-03 12:59] LABS: FREE T3 2.59 PG/ML (2.18-3.98); FREE T4 0.99 NG/DL (0.76-1.46)
[2017-03-06 03:52] LABS: THYROGLOB ABS LESS THAN 1 IU/mL (< OR = 1)
== END ==
LOC: CLAB 11:43
PROVIDERS: ATTEND Internal Medicine Endocrinology, Diabetes & Metabolism
DX: E11.65 Type 2 diabetes mellitus with hyperglycemia (principal); E78.5 Hyperlipidemia, unspecified; E05.00 Thyrotoxicosis with diffuse goiter without thyrotoxic crisis or storm; E05.20 Thyrotoxicosis with toxic multinodular goiter without thyrotoxic crisis or storm; I10 Essential (primary) hypertension
CPT/HCPCS: 36415; 80048; 82308; 84439; 84443; 84445; 84481; 86376; 86800

== ENCOUNTER → 2017-06-10 | Outpatient (CLI) | payer MEDICARE ==
[2017-06-10 11:51] LABS: ANION GAP 8 MEQ/L (5-15); AST (GOT) 8 U/L (15-37); BICARBONATE 29.7 MEQ/L (21.0-32.0); BLOOD UREA NITROGEN 27 MG/DL (7-18); CHLORIDE 98 MEQ/L (98-107); GLOMERULAR FILTRATION RATE 80 ML/MIN (>89); GLUCOSE,FASTING 358 MG/DL (74-99); POTASSIUM 4.3 MEQ/L (3.5-5.1); SODIUM (NA) 136 MEQ/L (136-145)
[2017-06-10 12:03] LABS: ALKALINE PHOSPHATASE 175 U/L (45-117); ALT (GPT) 18 U/L (10-53); FREE T4 1.32 NG/DL (0.76-1.46); TOTAL BILIRUBIN ADULT 0.5 MG/DL (0.2-1.0)
[2017-06-10 12:20] LABS: MICRO ALBUMIN RANDOM URINE RAW 23.6 MG/L (0.0-30.0)
[2017-06-10 15:38] LABS: HEMOGLOBIN A1a 1.4 %; HEMOGLOBIN A1b 1.3 %; HEMOGLOBIN Ao 71.7 %; HEMOGLOBIN F 2.1 %; HEMOGLOBIN LA1C 3.8 %; HEMOGLOBIN P3 6.2 %
== END ==
LOC: CLAB 11:07
DX: E11.65 Type 2 diabetes mellitus with hyperglycemia (principal); E05.00 Thyrotoxicosis with diffuse goiter without thyrotoxic crisis or storm
CPT/HCPCS: 36415; 80053; 82043; 83036; 84439; 84443

== ENCOUNTER 2017-09-01 01:41 | Emergency (ER) | payer MEDICARE ==
[~2017-09-01] VITALS: Ht 165.1 cm; Wt 75.0 kg
[~2017-09-01 01:41] MED LIST changes: -ALBU6.7H INH; +ASPI-516 CHEW; -BREAMIS5; +GABA100C4 PO; +MACR100C2 PO; +METO50TA PO; +PHEN0.4T PO; -PROT40TA PO
[2017-09-01 01:44] VITALS: BP 206/100; PULSE 117; RESP 16; TEMP 98.1; O2SAT 100
--- NOTE | 2017-09-01 01:58 | PD ---
HPI Chief Complaint: Cardiac Complaint Time Seen by Provider: 01:55 Travel History International Travel<30 days: No Contact w/Intl Traveler<30days: No Traveled to known affect area: No History of Present Illness HPI 81-year-old female presents to the emergency department by private transportation for evaluation of palpitations. Patient states she has felt well went to bed and awakened at midnight noticing that she had some palpitations patient was able to get up to go the bathroom drink some fluids and then had a small amount of food to eat because of persistent palpitations decided to take 2 low-dose aspirin and 1 sublingual nitroglycerin. Patient states felt no change in palpitations decided to come to the emergency room for evaluation. Patient denies any chest pain shortness of breath sweats nausea vomiting referred neck jaw back shoulder arm pain or abdominal pain. Patient states that she did not take nitroglycerin because of chest pain or shortness of breath she just thought it would help with her palpitations. Patient does have known coronary vessel disease diabetes hypertension and dyslipidemia. Patient is a nonsmoker. Patient also history of thyroid dysfunction. No report of agitation, temperature intolerance, weight loss, or hair or cutaneous changes. Also no recent febrile illness cough congestion hemoptysis shortness of breath abdominal pain nausea vomiting diarrhea flank pain dysuria frequency urgency or polyuria polydipsia or polyphagia. No injury or fall. No dizziness no lightheadedness no upper extremity lower extremity numbness tingling or weakness or ataxia of gait. No confusion reported. PFSH Past Medical History Narrative Medical CAD RI cardiac catheterization and stents 3 hypertension dyslipidemia diabetes thyroid dysfunction; no tobacco use: Nursing notes reviewed Hx Anticoagulant Therapy: Yes (ASA) Arthritis: Yes Heart Rhythm Problems: Yes Cardiac Catheterization: Yes (STENTS X3) Cardiovascular Problems: Yes (STENT x3 RI) High Cholesterol: Yes Congestive Heart Failure: No Diabetes: Yes Patient Takes Glucophage: No Diminished Hearing: No Gastrointestinal Disorders: Yes Heparin Induced Thrombocytopen: No Hypertension: Yes Immunizations Current: Yes Myocardial Infarction: Yes Tetanus Vaccination: Unknown Influenza Vaccination: Yes Menopausal: Yes : 7 Para: 7 Miscarriage: 0 : 0 Past Surgical History Coronary Artery Bypass Graft: No Gynecologic Surgery: Yes (HYSTERECTOMY) Hysterectomy: Yes Other Surgery: Yes Family History Family Myocardial Infarction: Yes (MOTHER) Social History Alcohol Use: No Tobacco Use: No Substance Use: No Allergies-Medications (Allergen,Severity, Reaction): Coded Allergies: No Known Allergies (Verified Allergy, Unknown, 09/01/17) Reported Meds & Prescriptions Reported Meds & Active Scripts Active Macrobid (Nitrofurantoin Monoh/Nitrofur Macro) 100 Mg Cap 100 Mg PO BID 7 Days Senna Plus 8.6-50 mg (Sennosides-Docusate Sodium) 1 Tab Tab 2 Tab PO BID PRN Reported Amlodipine (Amlodipine Besylate) 5 Mg Tab 5 Mg PO DAILY Aspirin 81 Mg Chew 81 Mg CHEW DAILY Gabapentin 100 Mg Cap 100 Mg PO TID Metoprolol Tartrate 50 Mg Tab 50 Mg PO BID Lisinopril-Hctz 20-12.5 Mg Tab 1 Tab PO DAILY Novolog Inj (Insulin Aspart) 1,000 Unit/10 Ml Vial 0 SQ ACHS SLIDING SCALE Sliding Scale as directed. Levemir Inj (Insulin Detemir) 1,000 unit/ 10 ML Vial 25 Units SQ HS Do not mix with any other Insulin. Review of Systems Except as stated in HPI: all other systems reviewed are Neg Physical Exam Narrative GENERAL: Well-developed well-nourished female in no acute distress no respiratory distress SKIN: Warm and dry. HEAD: Normocephalic. EYES: No scleral icterus. No injection or drainage. NECK: Supple, trachea midline. No JVD or lymphadenopathy. CARDIOVASCULAR: Regular rate and rhythm without murmurs, gallops, or rubs. RESPIRATORY: Breath sounds equal bilaterally. No accessory muscle use. GASTROINTESTINAL: Abdomen soft, non-tender, nondistended. MUSCULOSKELETAL: No cyanosis, or edema. BACK: Nontender without obvious deformity. No CVA tenderness. Data Data Last Documented VS Vital Signs Date Time Temp Pulse Resp B/P (MAP) Pulse Ox O2 Delivery O2 Flow Rate FiO2 09/01/17 02:19 98 Room Air 09/01/17 02:19 94 16 09/01/17 01:44 98.1 Orders Orders Electrocardiogram (09/01/17 01:55) Basic Metabolic Panel (Bmp) (09/01/17 01:55) B-Type Natriuretic Peptide (09/01/17 01:55) Ckmb (Isoenzyme) Profile (09/01/17 01:55) Complete Blood Count With Diff (09/01/17 01:55) Magnesium (Mg) (09/01/17 01:55) Prothrombin Time / Inr (Pt) (09/01/17 01:55) Act Partial Throm Time (Ptt) (09/01/17 01:55) Troponin I (09/01/17 01:55) Chest, Single Ap (09/01/17 01:55) Ecg Monitoring (09/01/17 01:55) Bilateral Bp Monitoring (09/01/17 01:55) Iv Access Insert/Monitor (09/01/17 01:55) Oximetry (09/01/17 01:55) Oxygen Administration (09/01/17 01:55) Sodium Chloride 0.9% Flush (Ns Flush) (09/01/17 02:00) Urinalysis - C+S If Indicated (09/01/17 01:55) Urine Culture (09/01/17 02:10) Nitrofurantoin Monohyd Macrocr (Macrobid (09/01/17 03:00) CKMB (09/01/17 02:10) CKMB% (09/01/17 02:10) Sodium Chlorid 0.9% 500 Ml Inj (Ns 500 M (09/01/17 03:45) Insulin Human Regular Inj (Novolin R Inj (09/01/17 03:45) Blood Glucose (09/01/17 03:45) Ed Discharge Order (09/01/17 05:25) Labs Laboratory Tests Test 09/01/17 02:10 White Blood Count 4.8 TH/MM3 Red Blood Count 4.16 MIL/MM3 Hemoglobin 12.3 GM/DL Hematocrit 36.7 % Mean Corpuscular Volume 88.2 FL Mean Corpuscular Hemoglobin 29.7 PG Mean Corpuscular Hemoglobin Concent 33.7 % Red Cell Distribution Width 13.9 % Platelet Count 182 TH/MM3 Mean Platelet Volume 8.7 FL Neutrophils (%) (Auto) 39.4 % Lymphocytes (%) (Auto) 50.5 % Monocytes (%) (Auto) 6.3 % Eosinophils (%) (Auto) 3.1 % Basophils (%) (Auto) 0.7 % Neutrophils # (Auto) 1.9 TH/MM3 Lymphocytes # (Auto) 2.4 TH/MM3 Monocytes # (Auto) 0.3 TH/MM3 Eosinophils # (Auto) 0.1 TH/MM3 Basophils # (Auto) 0.0 TH/MM3 CBC Comment DIFF FINAL Differential Comment Prothrombin Time 10.4 SEC Prothromb Time International Ratio 1.0 RATIO Activated Partial Thromboplast Time 22.9 SEC Urine Color LIGHT-YELLOW Urine Turbidity CLEAR Urine pH 6.5 Urine Specific [place] 1.007 Urine Protein TRACE mg/dL Urine Glucose (UA) 1000 mg/dL Urine Ketones NEG mg/dL Urine Occult Blood NEG Urine Nitrite NEG Urine Bilirubin NEG Urine Urobilinogen LESS THAN 2.0 MG/DL Urine Leukocyte Esterase LARGE Urine RBC 2 /hpf Urine WBC 24 /hpf Urine Squamous Epithelial Cells 2 /hpf Urine Transitional Epithelial Cells 1 /hpf Urine Amorphous Sediment RARE Microscopic Urinalysis Comment CULTURE INDICATED Blood Urea Nitrogen 23 MG/DL Creatinine 1.15 MG/DL Random Glucose 495 MG/DL Calcium Level 8.7 MG/DL Magnesium Level 1.7 MG/DL Sodium Level 132 MEQ/L Potassium Level 3.6 MEQ/L Chloride Level 97 MEQ/L Carbon Dioxide Level 27.0 MEQ/L Anion Gap 8 MEQ/L Estimat Glomerular Filtration Rate 55 ML/MIN Total Creatine Kinase 109 U/L Creatine Kinase MB 1.8 NG/ML Troponin I LESS THAN 0.02 NG/ML B-Type Natriuretic Peptide 60 PG/ML MDM Medical Decision Making Medical Screen Exam Complete: Yes Emergency Medical Condition: Yes Medical Record Reviewed: Yes Interpretation(s) EKG: Sinus tachycardia rate [address]-T wave changes no acute ST elevation Last Impressions Chest X-Ray 09/01/17 0155 Signed Impressions: Service Date/Time: Friday, September 01, 2017 02:02 - CONCLUSION: 1. No acute cardiopulmonary disease. Hardik Cortez MD CBC & BMP Diagram 09/01/17 02:10 Calcium Level 8.7, Magnesium Level 1.7 Vital Signs Date Time Temp Pulse Resp B/P (MAP) Pulse Ox O2 Delivery O2 Flow Rate FiO2 09/01/17 02:19 98 Room Air 09/01/17 02:19 94 16 150/76 (100) Room Air 150/71 (97) 09/01/17 02:12 98 Room Air 09/01/17 02:11 185/82 (116) 98 Room Air 09/01/17 01:44 98.1 117 16 206/100 (135) 100 Room Air Troponin I: Less than 0.02; CK: 109, not elevated BNP: 60 Urinalysis: Glucosuria, leukocyte Estrace, elevated WBCs; culture indicated Differential Diagnosis Palpitations, electrolyte disturbance, ACS, thyroid dysfunction, sepsis, UTI Narrative Course Patient placed on satellite project site monitor with continuous pulse oximetry; EKG performed which showed mild sinus tachycardia with no ectopy and no acute injury pattern change; specimens collected and sent for resulting Patient resting comfortably Urinalysis found to be abnormal with culture indicated patient given first dose of antibiotic Macrobid 100 mg by mouth. Chemistries pending Chemistries resulted patient identified to have hyperglycemia therefore patient given a fluid bolus and regular insulin 6 units subcutaneously with repeat glucose at one hour ordered; patient had been drinking pedialyte prior to coming to the ED. Patient is stable for outpatient management cardiac enzymes are found to be in normal range no injury pattern by EKG no report of chest pain or shortness of breath sweats nausea vomiting or referred neck jaw back shoulder arm pain. Patient here appears stable for outpatient follow-up of nonspecific palpitations sinus tachycardia hyperglycemia and UTI. Patient encouraged to follow diabetic diet closely take medications for diabetic medication as prescribed and to follow-up with her primary care provider. Patient provided prescription for Macrobid. Patient has appointment with her PCP at 11 am on Friday and is encouraged to keep appointment and instructed to take her morning insulin. Diagnosis Primary Impression: Palpitations Additional Impressions: Sinus tachycardia UTI (urinary tract infection) Hyperglycemia due to type 2 diabetes mellitus Referrals: Primary Care Physician 2 days Patient Instructions: General Instructions Additional Instructions: Increase fluid hydration Monitor blood sugars closely and follow diabetic diet Continue current medications as presently prescribed Complete course of antibiotic Follow-up with your primary care provider Return to the emergency department for any concerns or change in condition Med/Other Pt SpecificInfo: Prescription(s) given Scripts Nitrofurantoin Monohydrate Macrocrystals (Macrobid) 100 Mg Cap 100 MG PO BID for Infection for 7 Days, #14 CAP 0 Refills Prov: Yarelis Canseco MD 09/01/17 Disposition: 01 DISCHARGE HOME Condition: Stable Yarelis Canseco MD Sep 01, 2017 01:58
[2017-09-01] MEDS ORDERED: SODIUM CHLORIDE 0.9% FLUSH 10 ML FLUSH IVF PRN (02:00)
[2017-09-01 02:11] VITALS: BP 185/82; O2SAT 98
--- NOTE | 2017-09-01 02:18 | RADRPT ---
EXAM DATE/TIME: 09/01/2017 02:02 [facility] COMPARISON: CHEST SINGLE AP, June 23, 2017, 22:45. INDICATIONS : Palpitations. MEDICAL HISTORY : Myocardial infarction. Cardiovascular disease. Hypertension. Diabetes SURGICAL HISTORY : Hysterectomy. ENCOUNTER: Initial ACUITY: 1 day PAIN SCORE: 0/10 LOCATION: Bilateral chest FINDINGS: A single view of the chest demonstrates the lungs to be symmetrically aerated without evidence of mas s, infiltrate or effusion. The cardiomediastinal contours are unremarkable. Osseous structures are intact. CONCLUSION: 1. No acute cardiopulmonary disease. Hardik Cortez MD on September 01, 2017 at 2:16 Board Certified Radiologist. This report was verified electronically.
[2017-09-01 02:19] VITALS: BP_SYST 150; BP_DIAS 71; BP_DIAS 76; PULSE 94; RESP 16; O2SAT 98
[2017-09-01 02:31] LABS: AMORPHOUS SEDIMENT, URINE RARE; BILIRUBIN, URINE NEG (NEG); BLOOD, URINE NEG (NEG); GLUCOSE,URINE 1000 mg/dL (NEG); KETONE, URINE NEG (NEG); NITRITE,URINE NEG (NEG); PH, URINE 6.5 (5.0-8.5); SQUAMOUS EPITHELIAL CELL URINE 2 /hpf (0-5); TRANSITIONAL EPI CELLS, URINE 1 /hpf; URINE COLOR LIGHT-YELLOW (YELLW/STRAW); URINE LEUKOCYTE ESTERASE LARGE (NEG)
[2017-09-01 02:36] LABS: AUTOMATED NEUTROPHIL # 1.9 TH/MM3 (1.8-7.7); BASOPHIL % 0.7 % (0.0-2.0); EOSINOPHIL # 0.1 TH/MM3 (0-0.4); EOSINOPHIL % 3.1 % (0.0-4.0); HEMATOCRIT 36.7 % (35.0-46.0); HEMOGLOBIN 12.3 GM/DL (11.6-15.3); LYMPH % 50.5 % (9.0-44.0); LYMPHOCYTE # 2.4 TH/MM3 (1.0-4.8); MEAN CELL VOLUME 88.2 FL (80.0-100.0); MEAN CORPUSCULAR HEMOGLOBIN 29.7 PG (27.0-34.0); MEAN CORPUSCULAR HGB CONC 33.7 % (32.0-36.0); MEAN PLATELET VOLUME 8.7 FL (7.0-11.0); MONO % 6.3 % (0.0-8.0); MONOCYTE # 0.3 TH/MM3 (0-0.9); NEUT % 39.4 % (16.0-70.0); PLATELET COUNT 182 TH/MM3 (150-450); RED BLOOD COUNT 4.16 MIL/MM3 (4.00-5.30); RED CELL DISTRIBUTION WIDTH 13.9 % (11.6-17.2); WHITE BLOOD COUNT 4.8 TH/MM3 (4.0-11.0)
[2017-09-01 02:47] LABS: PROTHROMBIN TIME - PATIENT 10.4 SEC (9.8-11.6)
[2017-09-01] MEDS ORDERED: NITROFURANTOIN MONOHYD MACROCR 100 MG CAP PO ONE (03:00)
[2017-09-01 03:32] LABS: BLOOD UREA NITROGEN 23 MG/DL (7-18); CALCIUM 8.7 MG/DL (8.5-10.1); CHLORIDE 97 MEQ/L (98-107); CREATININE 1.15 MG/DL (0.50-1.00); GLOMERULAR FILTRATION RATE 55 ML/MIN (>89); MAGNESIUM 1.7 MG/DL (1.5-2.5); SODIUM (NA) 132 MEQ/L (136-145); TROPONIN I LESS THAN 0.02 NG/ML (0.02-0.05)
[2017-09-01 03:34] LABS: GLUCOSE,RANDOM 495 MG/DL (74-106)
[2017-09-01] MEDS ORDERED: SODIUM CHLORID 0.9% 500 ML INJ 500 ML IV ONE (03:45)
[2017-09-01] MEDS ORDERED: INSULIN HUMAN REGULAR 1,000 UNITS/10 ML VIAL SQ ONE (03:45)
[2017-09-01] MEDS ORDERED: MACR100C2 PO (04:13)
--- NOTE | 2017-09-01 18:49 | EKG ---
Date Performed: 09/01/2017 Time Performed: 01:54:24 PTAGE: 81 years EKG: SINUS TACHYCARDIA NONSPECIFIC ST & T-WAVE ABNORMALITY ABNORMAL ECG PREVIOUS TRACING 06/23/17 @ 22.59.37 Compared to prior tracing no significant change DOCTOR: Tricia Stockton Interpretating Date/Time 09/01/2017 18:49:45
== END 2017-09-01 05:58 | disposition home or self-care (01) ==
LOC: NEPC 01:41
DX: R00.2 Palpitations (principal); R00.0 Tachycardia, unspecified; N39.0 Urinary tract infection, site not specified; E11.65 Type 2 diabetes mellitus with hyperglycemia; R94.31 Abnormal electrocardiogram [ECG] [EKG]; I10 Essential (primary) hypertension; E78.5 Hyperlipidemia, unspecified; I25.10 Atherosclerotic heart disease of native coronary artery without angina pectoris; I25.2 Old myocardial infarction
CPT/HCPCS: 71045; 80048; 81001; 82550; 82552; 83735; 83880; 84484; 85025; 85610; 85730; 87086; 93005; 96372; 99285; J1815; J7040